=== PATIENT | female | born 1930 | race Caucasian/White ===

== ENCOUNTER 2016-11-14 03:28 | Inpatient (IN) | payer OTHER ==
[~2016-11-14] VITALS: Ht 152.4 cm; Wt 61.2 kg
[2016-11-14 03:40] VITALS: BP 147/78; PULSE 73; RESP 18; TEMP 97.8; O2SAT 83
--- NOTE | 2016-11-14 03:45 | NUR ---
Placed in room 5 . Placed on exceptional needs teacher, blood pressure machine and pulse oximeter. To gown for exam. Side rails up. Report given to Lorena GAUTAM.
--- NOTE | 2016-11-14 03:58 | NUR ---
# 20 gauge angiocath placed to LEFT FOREARM. Use of asceptic technique. Opsite placed over site. Blood return noted. Blood for lab drawn from site. Flushed with 10 cc of normal saline. No evidence of infiltration noted. Patient tolerated well.
--- NOTE | 2016-11-14 04:14 | NUR ---
ANNABELLA Fernandez at bedside examining patient.
[2016-11-14] MEDS ORDERED: ONDANSETRON HCL 4 MG/2 ML VIAL IVP ONE (04:15)
[2016-11-14] MEDS ORDERED: NACL 0.9% 1,000 ML IV ONE (04:15)
[2016-11-14 04:32] LABS: ANION GAP 13 (5-15); CALCIUM 9.9 mg/dL (8.4-11.0); CHLORIDE 102 mmol/L (98-107); CREATININE 0.77 mg/dL (0.55-1.30); GLUCOSE 161 mg/dL (70-99); POTASSIUM 3.9 mmol/L (3.5-5.1); SODIUM SERUM 138 mmol/L (136-145); UREA NITROGEN, BLOOD 32 mg/dL (8-21)
[2016-11-14 04:38] LABS: BASOPHILS # (AUTO) 0.2 K/uL (0.0-0.2); BASOPHILS % (AUTO) 1.5 % (0.0-2.0); EOSINOPHILS % (AUTO) 0.1 % (0.0-4.0); HEMATOCRIT 42.5 % (36-48); HEMOGLOBIN 14.3 g/dL (12.0-16.0); LYMPHOCYTES # (AUTO) 0.6 K/uL (1.0-5.5); LYMPHOCYTES % (AUTO) 5.6 % (20.5-51.5); MEAN CORPUSCULAR HEMOGLOBIN 29 pg (27-31); MEAN CORPUSCULAR HGB CONC 34 % (32-36); MEAN CORPUSCULAR VOLUME 86 fL (79.0-98.0); MONOCYTES # (AUTO) 0.3 K/uL (0.0-1.0); NEUTROPHILS # (AUTO) 9.6 K/uL (1.8-7.7); NEUTROPHILS % (AUTO) 89.8 % (40.0-70.0); PLATELET COUNT (AUTO) 289 K/uL (130-430); RED BLOOD CELL COUNT(AUTO) 4.96 MIL/uL (4.2-6.2); RED CELL DISTRIBUTION WIDTH 13.7 % (9.0-15.0); WHITE BLOOD COUNT (AUTO) 10.7 K/uL (4.8-10.8)
--- NOTE | 2016-11-14 04:39 | NUR ---
Pt. presented to ED with c/o abdominal pain. Per pt. family "she has not had a bowel movement for awhile now". Abdominal sounds are Hypoactive upon auscaltaion. +n/v per family. No vomiting at this time.
[2016-11-14 04:41] LABS: ALANINE AMINOTRANSFERASE 16 U/L (12-78); ALBUMIN 3.7 g/dL (3.4-4.8); ASPARTATE AMINOTRANSFERASE 29 U/L (10-37); LIPASE 298 U/L (73-393); TOTAL BILIRUBIN 0.5 mg/dL (0.0-1.0); TOTAL PROTEIN, SERUM 7.5 g/dL (6.4-8.3)
[2016-11-14 04:49] LABS: PROTHROMBIN TIME 10.9 SECS (9.5-12.5)
[2016-11-14] MEDS ORDERED: KETOROLAC TROMETHAMINE 30 MG VIAL IVP ONE (05:15)
--- NOTE | 2016-11-14 06:58 | NUR ---
Family will bring list of home meds
--- NOTE | 2016-11-14 07:20 | NUR ---
CALLED SURGICAL CONSULT TO DR HOWARD, RE: ENTIRITIS VS SBO. SPOKE TO SAEED
--- NOTE | 2016-11-14 07:33 | NUR ---
Pt. being transfered to MD as per MD order, stable for transfer at this time.
--- NOTE | 2016-11-14 07:37 | NUR ---
Bedside report given to receiving RN
--- NOTE | 2016-11-14 07:38 | NUR ---
ADMISSION NOTE Received patient from ER via gurpolly, received report from RN. Patient admitted with diagnosis of abd pain. Patient oriented to hospital routine, call light, toileting and safety-patient verbalized understanding.
--- NOTE | 2016-11-14 07:50 | NUR ---
patient is awake x 3-4 son at the bedside. stable. no pain nor distress noted.
[2016-11-14 07:55] VITALS: BP 113/68; PULSE 64; RESP 16; TEMP 97.4; O2SAT 98
[2016-11-14] MEDS ORDERED: DOCU-144 PO (08:05)
[2016-11-14] MEDS ORDERED: AMLO5TAB4 PO (08:07)
[2016-11-14] MEDS ORDERED: L.RH1CAP PO (08:07)
[2016-11-14] MEDS ORDERED: BENA20TA2 PO (08:07)
[2016-11-14] MEDS ORDERED: MEMA10SO PO (08:07)
[2016-11-14 08:10] VITALS: BP 113/68; PULSE 64; RESP 16; TEMP 97.4; O2SAT 98
[2016-11-14] MEDS ORDERED: ACETAMINOPHEN 325 MG TABLET PO PRN (10:15)
--- NOTE | 2016-11-14 10:25 | NUR ---
Surgical Consult: for Dr. Roach, regarding SBO, ordered by Dr. Carson, spoke with
[2016-11-14] MEDS ORDERED: GASTROGRAFIN 120 ML ONE (11:31)
[2016-11-14 11:49] VITALS: BP 120/72; PULSE 68; RESP 18; TEMP 97.9; O2SAT 98
--- NOTE | 2016-11-14 12:00 | NUR ---
stable. call lights within reach. bed alarm is on.
[2016-11-14] MEDS: ONDANSETRON HCL 4 MG/2 ML VIAL IVP PRN (12:12)
[2016-11-14] MEDS: MORPHINE 4 MG/ML INJ. SYRINGE IVP PRN (12:13)
--- NOTE | 2016-11-14 14:00 | NUR ---
went to radiology for a procedure small bowel series.
--- NOTE | 2016-11-14 16:30 | NUR ---
still on npo status
[2016-11-14 16:54] VITALS: BP 112/69; PULSE 75; RESP 17; TEMP 97.7; O2SAT 97
--- NOTE | 2016-11-14 17:00 | NUR ---
patient trying to get up of bed. assists the patients.
--- NOTE | 2016-11-14 18:27 | NUR ---
informed Dr Roach of the consults.
--- NOTE | 2016-11-14 19:00 | NUR ---
family at the bedside
--- NOTE | 2016-11-14 19:35 | NUR ---
sbar report given to Emigdio GAUTAM
[2016-11-14 20:00] VITALS: BP 108/53; PULSE 83; RESP 18; TEMP 97.8; O2SAT 97
--- NOTE | 2016-11-14 20:00 | NUR ---
INITIAL NOTES: PT IS AWAKE, NOT IN ANY ACUTE DISTRESS; PT DENIED ANY PAIN , BUT FAMILY STATED SHE MIGHT BE IN SMALL PAIN , NO FACIAL GRIMACE NOTED ; THEN FAMILY STATED GIVE MEDICATION LATER SO SHE CAN GO TO SLEEP ;VITALS ARE STABLE ; NO NAUSEA OR VOMITING NOTED ; IV FLUID IS INFUSING TO THE R FA , NO S/S OF ANY INFILTRATION NOTED . CALL MORALES IN REACH ; FAMILY AT BEDSIDE ;WILL CONTINUE TO MONITOR.BED ALARM IS ON .
[2016-11-14] MEDS: D5NS 1,000 ML IV SCH (20:15)
--- NOTE | 2016-11-14 20:30 | NUR ---
SPONGE BATH: PT IS INCONTINENT WITH SMALL LOOSE BM , SPONGE BATH AND SHUKRI CARE GIVEN ; NOTICED THAT BM IS LOOSE , WILL SEE IF ANOTHER BM , WILL SENT FOR C DIFF . PT IS COMFORTABLE NOW , WILL CONTINUE TO MONITOR.
[2016-11-14] MEDS: MORPHINE 2 MG/ML INJ. SYRINGE IVP PRN (21:40)
--- NOTE | 2016-11-14 21:40 | NUR ---
PAIN: PER FAMILY PT IS IN MODERATE PAIN , MEDICATED WITH MORPHINE PER ORDER
--- NOTE | 2016-11-14 23:20 | NUR ---
RN NOTES: PT IS SLEEPING , NOT IN ANY ACUTE DISTRESS; WILL CONTINUE TO MONITOR.
[2016-11-15 00:18] VITALS: BP 103/52; PULSE 62; RESP 18; TEMP 97.6; O2SAT 97
--- NOTE | 2016-11-15 01:30 | NUR ---
BM: PT IS AWAKE, CONFUSED , NOTICED THAT PT REMOVING ALL HER LINEN AND GOWN , PT IS INCONTINENT WITH URINE AND LOOSE BM ; PT CLEANED , LINEN AND GOWN CHANGED ; PT DENIED ANY PAIN ; WILL CONTINUE TO MONITOR.
[2016-11-15] MEDS: D5NS 1,000 ML IV SCH ×2 (01:45→23:28)
--- NOTE | 2016-11-15 02:00 | NUR ---
RN NOTES: PT IS AWAKE, TRYING TO GET OUT OF BED ; STAYED WITH PT IN THE ROOM , REORIENTED PT ; PT REFUSED PAIN OR DISCOMFORT . WILL CONTINUE TO MONITOR.
[2016-11-15 03:19] VITALS: BP 125/70; PULSE 59; RESP 18; TEMP 96.4; O2SAT 100
--- NOTE | 2016-11-15 03:32 | NUR ---
RN ROUNDS: PT IS SLEEPING , NOT IN ANY ACUTE DISTRESS; WILL CONTINUE TO MONITOR.
--- NOTE | 2016-11-15 04:33 | NUR ---
RN NOTES: PT IS SLEEPING, NOT IN ANY ACUTE DISTRESS; WILL CONTINUE TO MONITOR.
--- NOTE | 2016-11-15 07:01 | NUR ---
CLOSING NOTES: PT IS COMFORTABLE , AWAKE, NOT IN ANY ACUTE DISTRESS; NO BM NOTED AFTER 0130 ; NO SIGNIFICANT CHANGES IN THE CONDITION ; WILL CONTINUE TO MONITOR AND WILL ENDORSE TO NEXT SHIFT NURSE.
--- NOTE | 2016-11-15 07:20 | NUR ---
REPORT GIVEN AT BEDSIDE , NOTICED THAT PT PULLED OUT THE IV ,CLEANED IV SITE , APPLIED PRESSURE .
--- NOTE | 2016-11-15 07:30 | NUR ---
rn notes: patient is awake x 2. but confused. afebrile. vss stable. still with iv access on the rt forearm #22 with D5ns at 100cc/hr infusing on well. lungs bilaterally clear. abdomen soft and non distended. bed in low position. bed alarm is on. patient has non skid shoes. no skin breakdown noted. call lights within reach. safety measures maintained. hourly rounding is necessary. informed patient to call for assistance.
[2016-11-15 08:05] VITALS: BP 140/80; PULSE 80; RESP 18; TEMP 96.8; O2SAT 99
[2016-11-15] MEDS: amLODIPine BESYLATE 5 MG TABLET PO SCH (09:01)
[2016-11-15] MEDS: BENAZEPRIL HCL 20 MG TABLET (LOTENSIN) PO SCH (09:01)
--- NOTE | 2016-11-15 09:06 | NUR ---
cue medication given at this time. applied kerlix to the iv site
--- NOTE | 2016-11-15 09:07 | NUR ---
Nutrition Update Sharif Scale 16 noted. Pt admitted for abd pain, enteritis versus SBO. Diet: NPO BMI: 26.4 kg/m2 RD to follow per nutrition care standards.
[2016-11-15] MEDS ORDERED: GASTROGRAFIN 120 ML ONE (09:46)
[2016-11-15] MEDS ORDERED: BARIUM SULFATE 135 ML SUSP.RECON (E-Z-HD) PO ONE (09:58)
--- NOTE | 2016-11-15 10:00 | NUR ---
greg placed an iv access on the rt forearm. applied kerlix on it #22.
--- NOTE | 2016-11-15 10:15 | NUR ---
pulled out the iv access. patient having diarrhea at this time. bed bath given by ana delgadillo
--- NOTE | 2016-11-15 10:30 | NUR ---
PLACE a new iv access on the right forearm #22.
--- NOTE | 2016-11-15 11:30 | NUR ---
patient pulled out the iv access.
[2016-11-15 12:10] VITALS: BP 105/52; PULSE 92; RESP 17; TEMP 97.6; O2SAT 98
--- NOTE | 2016-11-15 12:30 | NUR ---
applied ice packs on the rt forearm with hematoma due to iv infiltration. and patient pulled out iv many times.
--- NOTE | 2016-11-15 13:30 | NUR ---
hematoma subsided. still applying ice packs on it. patient said no pain at this time.
--- NOTE | 2016-11-15 14:30 | NUR ---
ALEJO RN TRIES TO INSERT IV ACCESS. BUT DIFFICULT VEINS.
--- NOTE | 2016-11-15 14:38 | NUR ---
Social Service Note: DISTRIBUTION DESIGNER met with pt's son, Raulito, and granddaughter, Hayde, at bedside. DISTRIBUTION DESIGNER explained that a referral had been made to [facility] to see if pt qualifies for Medi-Kunal. DISTRIBUTION DESIGNER explained that [facility] would assist in applying if pt qualifies. DISTRIBUTION DESIGNER explained [facility] and how they could assist the pt if pt qualifies for Medi-Kunal. DISTRIBUTION DESIGNER also provided pt's son with brochures for home care agencies and explained that those could be used if pt does not qualify for Medi-Kunal and/or until Medi-Kunal becomes effective and [facility] could be set up. DISTRIBUTION DESIGNER has provided pt's family with contact information for [facility] and [facility] guest services representative. DISTRIBUTION DESIGNER will remain available for support and will follow up as needed.
--- NOTE | 2016-11-15 16:00 | NUR ---
TRIED X 2 BY INOCENTE GAUTAM DIFFICULT VEINS.
[2016-11-15 16:05] VITALS: BP 152/76; PULSE 72; RESP 21; TEMP 97.2; O2SAT 100
--- NOTE | 2016-11-15 17:00 | NUR ---
DONY REPORTS DEVELOPER TRIED X 2. BUT ABLE TO PLACED AN IV ACCESS ON THE LEFT FOREARM #22.
--- NOTE | 2016-11-15 18:00 | NUR ---
ASSISTS ON ADLS.
--- NOTE | 2016-11-15 19:10 | NUR ---
OPENING NOTES RECEIVED REPORT AT BEDSIDE FROM DAY SHIFT NURSE. NO SIGNS OR SYMPTOMS OF DISTRESS NOTED. FALL PRECAUTIONS IN PLACE, CALL LIGHT WITHIN REACH. FAMILY AT BEDSIDE. WILL CONTINUE TO MONITOR.
--- NOTE | 2016-11-15 19:40 | NUR ---
SBAR REPORT GIVEN TO INCOMING NURSE ROBERT RN/ MADI RN AT THE BESIDE. FAMILIES IS AT THE BEDSIDE
[2016-11-15 20:27] VITALS: BP 146/69; PULSE 59; RESP 20; TEMP 97.2; O2SAT 97
--- NOTE | 2016-11-15 21:10 | NUR ---
ROUNDS PATIENT IS RESTING IN SEMI-FOWLERS POSITION. IV FLUIDS RUNNING. FAMILY AT BEDSIDE. NO SIGNS OR SYMPTOMS OF DISTRESS NOTED. FALL PRECAUTIONS IN PLACE, CALL LIGHT WITHIN REACH. WILL CONTINUE TO MONITOR.
[2016-11-15] MEDS: PANTOPRAZOLE SODIUM 40 MG/VIAL (PROTONIX) IVP SCH (21:15)
--- NOTE | 2016-11-15 23:10 | NUR ---
ROUNDS PATIENT IS SITTING UP IN BED, FAMILY AT BEDSIDE. IV FLUIDS CONTINUE TO RUN. NO SIGNS OR SYMPTOMS OF DISTRESS NOTED. FALL PRECAUTIONS IN PLACE, CALL LIGHT WITHIN REACH. WILL CONTINUE TO MONITOR.
[2016-11-15] MEDS: ONDANSETRON HCL 4 MG/2 ML VIAL IVP PRN (23:28)
[2016-11-15] MEDS: MORPHINE 2 MG/ML INJ. SYRINGE IVP PRN (23:29)
[2016-11-16 00:24] VITALS: BP_SYST 128; BP_SYST 157; BP_DIAS 69; BP_DIAS 81; PULSE 80; PULSE 85; RESP 18; TEMP 96.9; TEMP 98.2; O2SAT 96; O2SAT 97
[2016-11-16] MEDS: MORPHINE 4 MG/ML INJ. SYRINGE IVP PRN (01:22)
--- NOTE | 2016-11-16 01:47 | NUR ---
ROUNDS REORIENTED HER THAT SHE WAS IN THE HOSPITAL. PATIENT SHOWED NO SIGNS OR SYMPTOMS OF DISTRESS. BED IN LOWEST POSITION, BED ALARM ON, CALL LIGHT WITHIN REACH.
[2016-11-16] MEDS: D5NS 1,000 ML IV SCH ×4 (02:15→23:48)
--- NOTE | 2016-11-16 03:19 | NUR ---
OPENING NOTES RECEIVED REPORT AT BEDSIDE FROM DAY SHIFT NURSE. NO SIGNS OR SYMPTOMS OF DISTRESS NOTED. FALL PRECAUTIONS IN PLACE, CALL LIGHT WITHIN REACH. FAMILY AT BEDSIDE. WILL CONTINUE TO MONITOR. Addendum: 11/16/16 at 0322 by Dai Sanders RN DATE AND TIME IN ERROR. 11/15/16 AT 1910 SHOULD BE THE CORRECT DATE AND TIME
[2016-11-16 04:17] VITALS: BP 142/71; PULSE 79; RESP 20; TEMP 97.4; O2SAT 96
--- NOTE | 2016-11-16 04:21 | NUR ---
ROUNDS PATIENT SLEEPING COMFORTABLY. VISIBLE RISE AND FALL OF CHEST NOTED. NO SIGNS OR SYMPTOMS OF DISTRESS NOTED. BED IN LOWEST POSITION, BED ALARM ON. CALL LIGHT WITHIN REACH. WILL CONTINUE TO MONITOR.
--- NOTE | 2016-11-16 04:57 | NUR ---
NEW IV SITE FOUND PATIENT WITH IV REMOVED. PATIENT WAS CONFUSED, REORIENTED PATIENT. Restarted on LEFT FOREARM. Successful after 1 attempt; #22 GAUGE. Resumed current IVF of D5NS and regulated @ 100 ML/hour. Will observe for any signs of infiltration.
--- NOTE | 2016-11-16 06:45 | NUR ---
CLOSING NOTES PATIENT IS RESTING, SLEEPING COMFORTABLY. IV RUNNING, VISIBLE RISE AND FALL OF CHEST NOTED. NO SIGNS OR SYMPTOMS OF DISTRESS NOTED. BED IN LOWEST POSITION, BED ALARM ON, CALL LIGHT WITHIN REACH. WILL ENDORSE CARE TO DAY SHIFT NURSE.
--- NOTE | 2016-11-16 07:15 | NUR ---
Handoff rounds and patient sleeping at this time.
--- NOTE | 2016-11-16 08:10 | NUR ---
Patient asleep at this time.
--- NOTE | 2016-11-16 08:41 | NUR ---
Patient attempt to get out of bed. Floor nurse, Jovita and chart writer assist with reposition and reorientation to hospital and introduction of chart writer and team members. Patient says she is not hungry at this time. Says only minimal abdominal pain. Asked if patient wanted to try any other foods. Denies at this time. Given information about having IV fluids and being in hospital for stomach and possible discharge today. Asked if patient needed to walk to restroom. Patient denies need. WINDOW GLASS INSTALLER present and discussion about use of depend diapers.
[2016-11-16] MEDS: PANTOPRAZOLE SODIUM 40 MG/VIAL (PROTONIX) IVP SCH ×2 (09:03→21:43)
[2016-11-16] MEDS: amLODIPine BESYLATE 5 MG TABLET PO SCH (09:03)
[2016-11-16] MEDS: BENAZEPRIL HCL 20 MG TABLET (LOTENSIN) PO SCH (09:04)
[2016-11-16 09:15] VITALS: BP 145/64; PULSE 78; RESP 16; TEMP 96.4; O2SAT 98
--- NOTE | 2016-11-16 09:16 | NUR ---
Patient rounds for meds. Up in chair. [employer] WEBSPHERE COMMERCE DEVELOPER assist with bed bath. Linens arranged.
--- NOTE | 2016-11-16 10:33 | NUR ---
Patient says she forgot why she was here. Removed IV. Replaced IV in left hand 22 Gauge. Patient requests to call son.
--- NOTE | 2016-11-16 10:49 | NUR ---
Son of patient, Raulito, present at bedside.
--- NOTE | 2016-11-16 11:31 | NUR ---
Patient up to restroom for bm and urine. Streak of BM in brief. Education re: cream for irritation provided. Assisted with hand towel with soap and warm water for hands after. Provided juice and small crackers.
[2016-11-16 12:24] VITALS: BP 149/70; PULSE 67; RESP 18; TEMP 97.9; O2SAT 98
--- NOTE | 2016-11-16 12:27 | NUR ---
Round to patient. Says she would like to try another diet. Had 50 % of clear liquid.
--- NOTE | 2016-11-16 13:50 | NUR ---
Patient removed own IV and was replaced at this time. Grandson of the patient visiting.
--- NOTE | 2016-11-16 14:01 | NUR ---
Patient says she is having pain in left middle finger to grandson. Grandson request for ice pack provided to patient. Suggested tylenol prn for pain. Verbalizes understanding.
--- NOTE | 2016-11-16 15:33 | NUR ---
Rounds with provider covering, Doctor Miya. Wants work up with colonoscopy. Requests to have evaluation of gastroenterology. If no colonoscopy by GI MD would request barium enema. Believes it may be ca or stricture.
[2016-11-16 16:03] VITALS: BP 142/72; PULSE 72; RESP 18; TEMP 97.9; O2SAT 98
--- NOTE | 2016-11-16 16:29 | NUR ---
CONSULT GI COLONOSCOPY DR DEL REAL [phone] S/W PRIYA PIERCE @ [phone]
--- NOTE | 2016-11-16 17:41 | NUR ---
Son , Gabriel , present and visiting with mother. Update re: GI consult and colonoscopy a possible next step provided.
[2016-11-16 20:15] VITALS: BP 144/76; PULSE 63; RESP 18; TEMP 97.9; O2SAT 99
--- NOTE | 2016-11-16 21:46 | NUR ---
Medication Due medication administered as ordered.
--- NOTE | 2016-11-16 23:16 | NUR ---
Rounds Sleeping quietly, no apparent distress. No c/o pain or discomfort. Bed alarm on, call light within reach.
[2016-11-17] VITALS (7 sets, daily range): BP systolic 117–194; BP diastolic 58–99; PULSE 60–86; RESP 16–18; TEMP 96.6–98.4; O2SAT 97–100
--- NOTE | 2016-11-17 03:10 | NUR ---
Rounds Sleeping, no apparent distress. Easily aroused. No c/o pain or discomfort. Call light within reach. Bed alarm on.
--- NOTE | 2016-11-17 07:00 | NUR ---
Closing note Sitting up in bed, alert & oriented to name. Stated, "I am hungry." Reoriented to place & time. Informed breakfast will becoming & to stay in bed and not get up. Verbalized understanding. No c/o pain or discomfort. All needs attended to. Call light within reach, bed alarm on. Endorsed care to DAIN Hernandez via SBAR method.
[2016-11-17 07:07] LABS: BASOPHILS % (AUTO) 0.4 % (0.0-2.0); EOSINOPHILS # (AUTO) 0.1 K/uL (0.0-0.4); EOSINOPHILS % (AUTO) 1.1 % (0.0-4.0); HEMATOCRIT 34.6 % (36-48); HEMOGLOBIN 11.9 g/dL (12.0-16.0); LYMPHOCYTES # (AUTO) 0.6 K/uL (1.0-5.5); LYMPHOCYTES % (AUTO) 10.7 % (20.5-51.5); MEAN CORPUSCULAR HEMOGLOBIN 29 pg (27-31); MEAN CORPUSCULAR HGB CONC 35 % (32-36); MEAN CORPUSCULAR VOLUME 85 fL (79.0-98.0); MONOCYTES # (AUTO) 0.4 K/uL (0.0-1.0); MONOCYTES % (AUTO) 7.5 % (1.7-9.3); NEUTROPHILS # (AUTO) 4.8 K/uL (1.8-7.7); NEUTROPHILS % (AUTO) 80.3 % (40.0-70.0); PLATELET COUNT (AUTO) 232 K/uL (130-430); RED BLOOD CELL COUNT(AUTO) 4.08 MIL/uL (4.2-6.2); WHITE BLOOD COUNT (AUTO) 5.9 K/uL (4.8-10.8)
[2016-11-17 07:34] LABS: ALANINE AMINOTRANSFERASE 17 U/L (12-78); ALBUMIN 2.9 g/dL (3.4-4.8); ANION GAP 5 (5-15); ASPARTATE AMINOTRANSFERASE 24 U/L (10-37); CALCIUM 8.1 mg/dL (8.4-11.0); CHLORIDE 110 mmol/L (98-107); CREATININE 0.56 mg/dL (0.55-1.30); GLUCOSE 121 mg/dL (70-99); SODIUM SERUM 144 mmol/L (136-145); TOTAL BILIRUBIN 0.4 mg/dL (0.0-1.0); TOTAL PROTEIN, SERUM 6.3 g/dL (6.4-8.3); UREA NITROGEN, BLOOD 6 mg/dL (8-21)
--- NOTE | 2016-11-17 08:00 | NUR ---
NOTE PT SITTING UP IN BED. NO SOB./RESP DISTRESS OR PAIN/DISCOMFORT NOTED AT THIS TIME. IV IN RIGHT HAND INTACT AND PATENT AT THIS TIME. IVF'S INFUSING AT THIS TIME. CALL LIGHT WITHIN REACH.
[2016-11-17 08:04] LABS: POTASSIUM 2.8 mmol/L (3.5-5.1)
[2016-11-17] MEDS: D5NS 1,000 ML IV SCH (08:15)
[2016-11-17] MEDS ORDERED: POTASSIUM CHLORIDE 20 MEQ TAB.PRT.SR PO ONE ×2 (08:30→11:15)
[2016-11-17] MEDS: PANTOPRAZOLE SODIUM 40 MG/VIAL (PROTONIX) IVP SCH ×2 (08:54→21:45)
[2016-11-17] MEDS: BENAZEPRIL HCL 20 MG TABLET (LOTENSIN) PO SCH (09:32)
[2016-11-17] MEDS: amLODIPine BESYLATE 5 MG TABLET PO SCH (09:34)
[2016-11-17] MEDS: LR 1,000 ML IV SCH ×2 (11:15→22:19)
[2016-11-17] MEDS ORDERED: QUEtiapine FUMARATE 25 MG TABLET PO ONE (11:15)
[2016-11-17] MEDS ORDERED: cloNIDine HCL 0.1 MG TABLET PO PRN (11:15)
--- NOTE | 2016-11-17 11:30 | NUR ---
NOTE PT'S SON JULIET SPOKE TO DR MURRELL AND HAD QUESTIONS/CONCERNS ANSWERED AT THIS TIME. PT'S SON TEREZA SIGNED CONSENT FOR EGD/COLONOSCOPY. PT HAD PULLED HER RIGHT HAND IV AT THIS TIME WELL. PT SITTING IN BS CHAIR AT THIS TIME. PT IS CALM AND QUIET AT THIS TIME. CALL LIGHT WITHIN REACH.
--- NOTE | 2016-11-17 15:00 | NUR ---
NOTE PT SITTING IN HALLWAY IN BS CHAIR. PT'S GRANDDAUGHTER AMISHA SPOKE TO DR DEL REAL ABOUT COLONOSCOPY AND EGD, HAD HER QUESTIONS/CONCERNS ANSWERED AT THIS TIME. PT IS CALM AND QUIET. PT HAD NEW IV INSERTED IN RIGHT UPPER ARM AND ARNOLDO WRAPPED AT THIS TIME. NO NEEDS NOTED AT THIS TIME. PT CHECKED ON BY RN'S AND STUDENT SERVICES REP'S FREQUENTLY. NO NEEDS NOTED AT THIS TIME. PT STABLE.
[2016-11-17] MEDS ORDERED: BISACODYL 5 MG TABLET.DR (DULCOLAX) PO ONE (17:00)
--- NOTE | 2016-11-17 17:50 | NUR ---
note pt's son Gabriel at side. pt sitting in BS chair in hallway. pt at this time is eating her clear liquids dinner tray at this time. tolerating liquid dinner well. no nausea/vomiting/abdominal pain/cramping noted at this time. no needs noted at this time. pt sitting in front of nurses' station. no sob/resp distress or pain/discomfort noted at this time.
[2016-11-17] MEDS ORDERED: GOLYTELY / COLYTE SOLUTION 4 LITERS PO ONE (18:00)
--- NOTE | 2016-11-17 18:05 | NUR ---
NOTE PT SITTING IN HALLWAY WITH HER SON CASSI EATING HER DINNER, NEXT TO NURSES' STATION. NO SOB/RESP DISTRESS OR ABDOMINAL PAIN NOTED AT THIS TIME. UPPER RIGHT ARM IV INTACT AND PATENT AT THIS TIME. NO NEEDS NOTED. PT WAS CHECKED ON Q1' AND PRN FOR NEEDS AND CARE. PT WAS MAINTAINED WITH SAFETY PRECAUTIONS ALL SHIFT.
--- NOTE | 2016-11-17 20:15 | NUR ---
Notes Received patient sitting on chair drinking Golytely per family that helping patient drink golytely, patient already drunk 2 cups. Encouraged patient to drink golytely. IV site checked intact and patent, saline lock at this time will connect to IV fluid, Sitter at the bedside.
--- NOTE | 2016-11-17 20:24 | NUR ---
Notes Assisted patient to use bathroom, BRP with assist, patient had small soft bowel movement. patient wearing own diaper. applied barrier cream on patient bottom.
[2016-11-17] MEDS: POTASSIUM CHLORIDE 20 MEQ TAB.PRT.SR PO SCH (21:15)
[2016-11-17] MEDS: QUEtiapine FUMARATE 25 MG TABLET PO SCH (21:15)
--- NOTE | 2016-11-17 21:30 | NUR ---
Notes Attempted to place NGT to patient per MD ordered if patient did not take Golytely, patient refused NGT, family at the bedside states that they will help patient to take Golytely. Patient drunk x6 cup of Golytely already per son at the bedside. Daughter in law will stay until 23:30 to help patient take the Golytely. will monitor.
--- NOTE | 2016-11-17 23:50 | NUR ---
Notes Assisted patient to go to the bathroom and back to bed x3, watery loose stool with sediment noted. Patient does not want to take Golytely, patient already drunk 2000ml. Patient want's to go to sleep. will try later.
[2016-11-18] VITALS (7 sets, daily range): BP systolic 123–167; BP diastolic 63–104; PULSE 62–78; RESP 18–19; TEMP 97–99.3; O2SAT 82–100
--- NOTE | 2016-11-18 00:29 | NUR ---
Notes Assisted patient to use bathroom, BRP with assist, patient had watery loose stool. patient wearing own diaper. applied barrier cream on patient bottom.
--- NOTE | 2016-11-18 01:10 | NUR ---
Notes Assisted patient to use bathroom and back to bed, BRP with assist, patient had watery loose stool. patient wearing own diaper.
--- NOTE | 2016-11-18 03:42 | NUR ---
Notes Patient asleep, no s/s of any pain, no acute distress noted. sitter at the bedside.
--- NOTE | 2016-11-18 04:39 | NUR ---
Notes Patient asleep, no s/s of any pain, no acute distress noted. sitter at the bedside.
--- NOTE | 2016-11-18 05:30 | NUR ---
Tap water enema X1 Tap water enema given, patient tolerated procedure well, clear watery stool noted.
--- NOTE | 2016-11-18 06:13 | NUR ---
Direct Observer at bedside Discontinued: Direct observer ordered so patient will not pull out NGT. No NGT at this time. As endorsed by AM shift Charge nurse 11/17/16, when NGT out, discontinue direct observer.
--- NOTE | 2016-11-18 06:33 | NUR ---
Closing notes No other changes noted on patient current condition, resting quietly at this time.
[2016-11-18 07:15] LABS: BASOPHILS % (AUTO) 0.3 % (0.0-2.0); EOSINOPHILS # (AUTO) 0.1 K/uL (0.0-0.4); EOSINOPHILS % (AUTO) 1.7 % (0.0-4.0); HEMATOCRIT 34.9 % (36-48); HEMOGLOBIN 11.6 g/dL (12.0-16.0); LYMPHOCYTES # (AUTO) 0.5 K/uL (1.0-5.5); LYMPHOCYTES % (AUTO) 9.9 % (20.5-51.5); MEAN CORPUSCULAR HEMOGLOBIN 29 pg (27-31); MEAN CORPUSCULAR HGB CONC 33 % (32-36); MEAN CORPUSCULAR VOLUME 87 fL (79.0-98.0); MONOCYTES # (AUTO) 0.5 K/uL (0.0-1.0); MONOCYTES % (AUTO) 10.6 % (1.7-9.3); NEUTROPHILS # (AUTO) 3.9 K/uL (1.8-7.7); NEUTROPHILS % (AUTO) 77.5 % (40.0-70.0); PLATELET COUNT (AUTO) 241 K/uL (130-430); RED CELL DISTRIBUTION WIDTH 13.5 % (9.0-15.0)
--- NOTE | 2016-11-18 07:20 | NUR ---
am rounds: patient lying on the bed,awake.ivf on going at right upper arm covered with theo bandage.no distress. bed alarm on.continue to monitor.
[2016-11-18 07:24] LABS: ANION GAP 5 (5-15); CALCIUM 8.4 mg/dL (8.4-11.0); CHLORIDE 107 mmol/L (98-107); CREATININE 0.59 mg/dL (0.55-1.30); GLUCOSE 107 mg/dL (70-99); PHOSPHORUS 1.7 mg/dL (2.7-4.5); POTASSIUM 3.5 mmol/L (3.5-5.1); SODIUM SERUM 138 mmol/L (136-145); UREA NITROGEN, BLOOD 4 mg/dL (8-21)
[2016-11-18 07:49] LABS: INR 1.1 (0.8-1.2); PROTHROMBIN TIME 11.6 SECS (9.5-12.5)
--- NOTE | 2016-11-18 07:51 | NUR ---
rn notes: bed alarm on and came in to check the patient ,iv removed by the patient.placed a gauze on the site,no bleeding noted. bed alarm on.
[2016-11-18] MEDS: BENAZEPRIL HCL 20 MG TABLET (LOTENSIN) PO SCH (09:00)
[2016-11-18] MEDS: PANTOPRAZOLE SODIUM 40 MG/VIAL (PROTONIX) IVP SCH (09:04)
--- NOTE | 2016-11-18 09:07 | NUR ---
iv notes: iv re sited at left arm using g#20 by jennifer.
--- NOTE | 2016-11-18 11:05 | NUR ---
ROUNDS: RESTING, SON AT BEDSIDE.
[2016-11-18] MEDS: MORPHINE 2 MG/ML INJ. SYRINGE IVP PRN (11:36)
[2016-11-18] MEDS ORDERED: MIDAZOLAM HCL 5 MG/5 ML VIAL ONE (12:50)
[2016-11-18] MEDS ORDERED: MEPERIDINE HCL/PF 50 MG/ML AMP ONE (12:51)
--- NOTE | 2016-11-18 13:09 | NUR ---
ROUNDS: SLEEPING DURING ROUNDS. STABLE. NPO MAINTAINED.
--- NOTE | 2016-11-18 13:35 | NUR ---
GI LAB: PATIENT TO GI LAB PER NELLY. NPO MAINTAINED. FOR EGD AND COLONOSCOPY.CONSENT ATTACHED TO CHART.
[2016-11-18] MEDS: MIDAZOLAM HCL 5 MG/5 ML VIAL ONE ×3 (14:00→14:06)
[2016-11-18] MEDS: MEPERIDINE HCL/PF 50 MG/ML AMP ONE ×2 (14:02→14:04)
--- NOTE | 2016-11-18 15:25 | NUR ---
ROUNDS: PT BACK FROM GI LAB.STABLE. EGD AND COLONOSCOPY DONE.
[2016-11-18] MEDS: POTASSIUM CHLORIDE 20 MEQ TAB.PRT.SR PO SCH (15:55)
[2016-11-18] MEDS: amLODIPine BESYLATE 5 MG TABLET PO SCH (15:56)
[2016-11-18] MEDS: QUEtiapine FUMARATE 25 MG TABLET PO SCH (16:00)
--- NOTE | 2016-11-18 16:27 | NUR ---
MD ROUNDS: PATIENT SEEN BY DR FARRIS WITH ORDERS DC HOME IF PT TOLERATES SOFT DIET AT DINNER.
--- NOTE | 2016-11-18 18:33 | NUR ---
MEAL: PATIENT SITTING ON THE CHAIR HAVING DINNER.WAITING TO SEE IF PT TOLERATES THE MEAL.
--- NOTE | 2016-11-18 19:00 | NUR ---
CLOSING NOTES: REPORT GIVEN TO [place] NIGHT NURSE. PT POSSIBLE HOME TONIGHT IF TOLERATED THE DIET ORDERED.
--- NOTE | 2016-11-18 20:55 | NUR ---
D/C Patient Patient given medication reconciliation form and D/C instructions. Exit Care provided. Patient's son Gabriel verbalized understanding. MD discussed with patient's son Gabriel the results and treatment provided. Ambulatory with steady gait for discharge to home. Patient in stable condition, ID band removed. IV catheter removed, intact and dressing applied, no active bleeding. no RX. Patient educated on pain management. All belongings sent with patient.
--- NOTE | 2016-11-21 11:12 | NUR ---
Discharge Follow Up Phone Call Assistant Professor Of Geography phoned patient's son, Raulito, , on 11/20/16 and left a voicemail message on 11/20/16. [facility] phoned Raulito today. Raulito stated that patient was continuing to have pain in her side. He questioned why patient did not receive pain medication. SOLID FIBER PASTER OPERATOR was unable to answer that. Patient's PCP is out of office today. Raulito will try to get patient an appointment tomorrow. Patient's follow up with the GI is not for a month. Raulito is trying to get an earlier appointment. [facility] provided Dr Ruiz's contact information. Raulito will try calling. [facility] also suggested he try working with the PCP tomorrow to get an earlier GI appointment. Raulito requested Brendan with [facility] phone number to discuss Medi-Kunal further. [facility] provided it, . Raulito would like to hot die picker patient's Medical Records today, [facility] transferred him to Medical Records. Assistant Professor Of Geography will remain available upon request.
== END 2016-11-18 20:48 | disposition home or self-care (01) | DRG 390 ==
LOC: SED 03:28 → SMU 06:47
PROVIDERS: ADMIT Internal Medicine Hospice and Palliative Medicine; ATTEND Internal Medicine Hospice and Palliative Medicine
PROC: 0DB68ZX Excision of Stomach, Via Natural or Artificial Opening Endoscopic, Diagnostic (ICD-10-PCS; principal; 2016-11-18 13:30)
PROC: 0DJD8ZZ Inspection of Lower Intestinal Tract, Via Natural or Artificial Opening Endoscopic (ICD-10-PCS; 2016-11-18 13:30)
DX: K56.60 Unspecified intestinal obstruction (principal); K29.70 Gastritis, unspecified, without bleeding; I10 Essential (primary) hypertension; K21.9 Gastro-esophageal reflux disease without esophagitis; K57.90 Diverticulosis of intestine, part unspecified, without perforation or abscess without bleeding; K64.9 Unspecified hemorrhoids; K31.89 Other diseases of stomach and duodenum; E03.9 Hypothyroidism, unspecified; F03.90 Unspecified dementia, unspecified severity, without behavioral disturbance, psychotic disturbance, mood disturbance, and anxiety
CPT/HCPCS: 36415; 43239; 45378; 74240-TC; 74250-TC; 80048; 80053; 83690-TC; 83735-TC; 84100-TC; 84484; 85025; 85610-TC; 85730-TC; 87081; 87230-TC; 93005; 96361; 96374; 96375; 99285; C9113; J1885; J2175; J2250; J2270; J2405; J7030; J7042; J7120; Q9963

== ENCOUNTER 2019-05-14 14:57 | Inpatient (IN) | payer OTHER ==
[~2019-05-14] VITALS: Ht 154.9 cm; Wt 57.2 kg
[~2019-05-14 14:57] MED LIST: AMLO5TAB4 PO; BENA20TA9 PO; DOCU-144 PO; L.RH1CAP PO; MEMA10SO PO
[2019-05-14 15:00] VITALS: BP_SYST 157
--- NOTE | 2019-05-14 15:00 | NUR ---
BROUGHT IN BY [facility] AND PLACED IN BED #1, TRIAGED, SON AT BEDSIDE FOR HELP WITH HISTORY. REPORT GIVEN TO EMIR
--- NOTE | 2019-05-14 15:10 | NUR ---
Patient presented to ER with c/o left hip pain. Patient brought in by BLS from home. Patient confused, A&Ox3, skin pink, respirations equal. Son of patient states she was found on the floor at home on her back, patient fell while ambulating. Son of patient was at home at time of fall, in another room. Son is primary grounds caretaker, patient has dementia.
[2019-05-14] MEDS ORDERED: ACETAMINOPHEN 500 MG TABLET PO ONE (15:15)
--- NOTE | 2019-05-14 15:27 | NUR ---
Patient to ER bed 1 from radiology
[2019-05-14] MEDS ORDERED: MORPHINE 2 MG/ML INJ. SYRINGE IVP ONE (15:30)
--- NOTE | 2019-05-14 17:30 | NUR ---
Medication reconciliation completed with information provided by Son of patient. Any prior medication reconciliation on file was reviewed and corrected.
[2019-05-14] MEDS ORDERED: FURO-150 PO (17:31)
[2019-05-14] MEDS ORDERED: POTA10TA15 PO (17:33)
[2019-05-14 17:43] LABS: BASOPHILS % (AUTO) 0.4 % (0.0-2.0); EOSINOPHILS % (AUTO) 0.5 % (0.0-4.0); HEMOGLOBIN 14.1 g/dL (12.0-16.0); LYMPHOCYTES # (AUTO) 0.5 K/uL (1.0-5.5); LYMPHOCYTES % (AUTO) 6.9 % (20.5-51.5); MEAN CORPUSCULAR HEMOGLOBIN 32 pg (27-31); MEAN CORPUSCULAR HGB CONC 34 % (32-36); MEAN CORPUSCULAR VOLUME 92 fL (79.0-98.0); MONOCYTES # (AUTO) 0.3 K/uL (0.0-1.0); MONOCYTES % (AUTO) 4.7 % (1.7-9.3); NEUTROPHILS # (AUTO) 6.4 K/uL (1.8-7.7); NEUTROPHILS % (AUTO) 87.5 % (40.0-70.0); PLATELET COUNT (AUTO) 236 K/uL (130-430); RED BLOOD CELL COUNT(AUTO) 4.45 MIL/uL (4.2-6.2); RED CELL DISTRIBUTION WIDTH 13.4 % (9.0-15.0); WHITE BLOOD COUNT (AUTO) 7.3 K/uL (4.8-10.8)
[2019-05-14 17:47] LABS: ANION GAP 7 (5-15); CALCIUM 9.1 mg/dL (8.4-11.0); CHLORIDE 98 mmol/L (98-107); CREATININE 0.58 mg/dL (0.55-1.30); GLUCOSE 104 mg/dL (70-99); SODIUM SERUM 132 mmol/L (136-145); UREA NITROGEN, BLOOD 16 mg/dL (8-21)
[2019-05-14 17:51] LABS: INR 1.1 (0.8-1.2); PROTHROMBIN TIME 10.9 SECS (9.5-12.5)
[2019-05-14 17:53] LABS: ALANINE AMINOTRANSFERASE 16 U/L (12-78); ALBUMIN 3.4 g/dL (3.4-4.8); ASPARTATE AMINOTRANSFERASE 24 U/L (10-37); TOTAL BILIRUBIN 0.4 mg/dL (0.0-1.0)
[2019-05-14] MEDS ORDERED: MORPHINE 4 MG/ML INJ. SYRINGE IVP ONE (18:00)
--- NOTE | 2019-05-14 18:15 | NUR ---
# 16 FR Romo catheter with use of sterile technique. Immediate return of 30 cc yellow urine noted. Bedside drainage bag placed below level of bladder. Urine sample collected and sent to lab. Pt tolerated procedure . Patient arrived with romo in place, changed due to standard of practice prior to admission. Patient unable to toilet self.
[2019-05-14 18:39] LABS: BILIRUBIN,URINE NEGATIVE (NEGATIVE); CLARITY/URINE CLEAR (CLEAR); COLOR,URINE YELLOW (YELLOW); GLUCOSE,URINE NEGATIVE (NEGATIVE); KETONES,URINE NEGATIVE (NEGATIVE); LEUKOCYTE ESTERASE ,URINE NEGATIVE (NEGATIVE); NITRITE, URINE NEGATIVE (NEGATIVE); PROTEIN URINE NEGATIVE (NEGATIVE); UROBILINOGEN,URINE 0.2 (0.2-1.0)
[2019-05-14 18:41] LABS: BLOOD, URINE TRACE (NEGATIVE)
--- NOTE | 2019-05-14 18:41 | NUR ---
Note undone in ED - 05/14/19 at 1926 by DIPESHEDTUlysses Transfer to Tele 120A via ACLS protocol. Licensed nurse present. IV present no signs or symptoms of infiltration.Patient will be admitted to care of Dr. Holliday. Admitted to Tele unit. Will go to room 120A. Belongings list completed. Summary report printed. Report will be given at bedside.
--- NOTE | 2019-05-14 18:41 | NUR ---
Admitted to Tele unit. Will go to room 120A. Belongings list completed. Summary report printed. Report will be given at bedside. Patient will be admitted to care of Dr. Holliday. Admitted to Tele unit. Will go to room 120A. Belongings list completed. Summary report printed. Report given at bedside es Schultz RN & Tracey RN. Transfer to Tele 120A via ACLS protocol. Licensed nurse present. IV present no signs or symptoms of infiltration.Patient will be admitted to care of Dr. Holliday.
[2019-05-14] MEDS ORDERED: NACL 0.9% 1,000 ML IV SCH (18:45)
[2019-05-14 18:50] LABS: BACTERIA,URINE RARE /HPF (None Seen); MUCUS,URINE None Seen /LPF (None Seen); RBC,URINE 0-3 /HPF (0-3); WBC,URINE 0-3 /HPF (0-3)
[2019-05-14 20:05] VITALS: BP_SYST 137
--- NOTE | 2019-05-14 20:36 | NUR ---
Admission Note Received patient from ER with diagnosis of LEFT HIP FRACTURE. Initial Plan of Care discussed-patient & FAMILY MEMBER verbalized understanding. Family at bedside. Oriented to room, call light, pain management and safety.
[2019-05-14] MEDS ORDERED: ONDANSETRON HCL 4 MG/2 ML VIAL IVP PRN (23:00)
[2019-05-14] MEDS ORDERED: ACETAMINOPHEN 325 MG TABLET PO PRN (23:00)
--- NOTE | 2019-05-14 23:18 | NUR ---
CONSULTATION PAGED/CALLED Reason for Consultation: FX HIP Person Who was Notified: SIRISHA Consulting Physician: DR. PAGAN Hand Polisher Specialty: Ordering Physician: DR. MURRELL
[2019-05-14] MEDS ORDERED: cloNIDine HCL 0.1 MG TABLET PO PRN (23:30)
[2019-05-14] MEDS ORDERED: QUEtiapine FUMARATE 25 MG TABLET PO SCH (23:31)
[2019-05-15] MEDS: MORPHINE 2 MG/ML INJ. SYRINGE IVP PRN ×6 (00:04→20:34)
--- NOTE | 2019-05-15 00:33 | NUR ---
CONSULTATION PAGED/CALLED Reason for Consultation: CARDIAC CLEARENCE Person Who was Notified: YUKO Consulting Physician: DR. DIXON. (DR. RIVERS IS BARREL BUNG REMOVER AND DUMPER) Teacher Of Gifted Students Specialty: Ordering Physician: DR. MURRELL
--- NOTE | 2019-05-15 01:09 | NUR ---
MORPHINE SULFATE 2 MG IVP administer for left HIP pain and helpful comfort measures implemented & tolerated .
--- NOTE | 2019-05-15 01:12 | NUR ---
DR HANDY OSORIO @ THE BEDSIDE WITH PATIENT NEW ORDERS OBTAINED FAMILY IS HERE & AWARE .
--- NOTE | 2019-05-15 01:13 | NUR ---
SEROQUEL 25 MG PO administer as ordered patient agitated at times FALL RISK .
[2019-05-15 01:25] VITALS: BP_SYST 131
[2019-05-15] MEDS: D5LR 1,000 ML IV SCH ×2 (02:05→14:31)
--- NOTE | 2019-05-15 04:01 | NUR ---
BUCKS TRACTION APPLIED 5 LBS PATIENT TOLERATING .
--- NOTE | 2019-05-15 04:02 | NUR ---
Patient agitated pulling on Tubes Phoned family Osmany to stay with patient & helpful .
--- NOTE | 2019-05-15 06:41 | NUR ---
MORPHINE SULFATE 2 MG IVP GIVEN FOR ACUTE LEFT HIP PAIN 02/24 and helpful .
--- NOTE | 2019-05-15 07:45 | NUR ---
OPENING NOTE PATIENT AWAKE IN BED AND RESTLESS. A/OX1. ROOM AIR. NO ACUTE DISTRESS. NO SOB. RESPIRATION EVEN AND UNLABORED. SKIN WARM AND DRY TO TOUCH. IV INTACT AND PATENT; SUGEY IVF. EDGAR CATH DRAINING YELLOW CLEAR URINE. PATIENT WITH TRAPEZE BAR AND BUCKS TRACTION INTACT AT 5 BLS; SUGEY WELL. BED IN LOW AND LOCKED POSITION. SIDERAIL UPX3. BED ALARM ON. SON AT BEDSIDE. CALL LIGHT IN REACH. CONT TO MONITOR.
[2019-05-15 08:24] VITALS: BP_SYST 127
[2019-05-15 08:52] LABS: BASOPHILS % (AUTO) 0.2 % (0.0-2.0); EOSINOPHILS % (AUTO) 0.1 % (0.0-4.0); HEMATOCRIT 40.6 % (36-48); HEMOGLOBIN 13.7 g/dL (12.0-16.0); LYMPHOCYTES # (AUTO) 0.4 K/uL (1.0-5.5); LYMPHOCYTES % (AUTO) 4.7 % (20.5-51.5); MEAN CORPUSCULAR HEMOGLOBIN 31 pg (27-31); MEAN CORPUSCULAR HGB CONC 34 % (32-36); MEAN CORPUSCULAR VOLUME 92 fL (79.0-98.0); MONOCYTES # (AUTO) 0.4 K/uL (0.0-1.0); MONOCYTES % (AUTO) 4.9 % (1.7-9.3); NEUTROPHILS # (AUTO) 7.1 K/uL (1.8-7.7); NEUTROPHILS % (AUTO) 90.1 % (40.0-70.0); PLATELET COUNT (AUTO) 240 K/uL (130-430); RED BLOOD CELL COUNT(AUTO) 4.43 MIL/uL (4.2-6.2); RED CELL DISTRIBUTION WIDTH 13.4 % (9.0-15.0); WHITE BLOOD COUNT (AUTO) 7.8 K/uL (4.8-10.8)
[2019-05-15] MEDS: DOCUSATE SODIUM 100 MG CAPSULE PO SCH ×2 (08:55→20:34)
[2019-05-15] MEDS: MULTIVITS,CA,MINERALS/IRON/FA 1 TABLET PO SCH (08:55)
[2019-05-15] MEDS: LACTOBACILLUS RHAMNOSUS GG 1 CAP CAPSULE PO SCH ×2 (08:55→20:34)
[2019-05-15] MEDS: CHOLECALCIFEROL (VITAMIN D3) 2,000 UNIT TABLET PO SCH (08:56)
--- NOTE | 2019-05-15 08:57 | NUR ---
MEDS ALL DUE MEDS ADMINISTERED AT THIS TIME. TEACHING DONE ON MEDICATION AND ASE. SON AT BEDSIDE. ALL NEEDS MET. CONT TO MONITOR
[2019-05-15] MEDS ORDERED: amLODIPine BESYLATE 5 MG TABLET PO SCH (09:00)
[2019-05-15] MEDS ORDERED: MEMANTINE HCL 5 MG TABLET PO SCH (09:00)
[2019-05-15] MEDS ORDERED: LISINOPRIL 20 MG TABLET PO SCH (09:00)
[2019-05-15 09:05] LABS: ANION GAP 8 (5-15); CALCIUM 9.1 mg/dL (8.4-11.0); CHLORIDE 97 mmol/L (98-107); CREATININE 0.49 mg/dL (0.55-1.30); GLUCOSE 146 mg/dL (70-99); POTASSIUM 3.3 mmol/L (3.5-5.1); SODIUM SERUM 132 mmol/L (136-145); THYROID STIMULATING HORMONE 10.06 uIu/mL (0.36-3.74); UREA NITROGEN, BLOOD 11 mg/dL (8-21)
--- NOTE | 2019-05-15 09:47 | NUR ---
SEEN AND EXAMINED BY AT BEDSIDE
--- NOTE | 2019-05-15 10:41 | NUR ---
Nutrition Update Sharif Scale 16 noted. Pt admitted for L hip fracture. Diet: mechanical soft BMI: 25.5 kg/m2 RD to follow per nutrition care standards.
[2019-05-15 11:22] VITALS: BP_SYST 104
--- NOTE | 2019-05-15 12:30 | NUR ---
NOTE PATIENT C/O SEVERE PAIN TO LEFT HIP AND BACK. VS STABLE. REFUSED ICE PACK. MORPHINE ADMINISTERED ORDERED, SUGEY WELL. ALL NEEDS MET. CONT TO MONITOR. CALL LIGHT IN REACH. SON JULIET AT BEDSIDE
--- NOTE | 2019-05-15 12:40 | NUR ---
SEEN AND EXAMINED BY AT BEDSIDE
[2019-05-15] MEDS ORDERED: POTASSIUM CHLORIDE 40 MEQ, LIDOCAINE JECT 2% PF 100 MG 50 MG in NS 250 ML IV ONE (12:45)
[2019-05-15] MEDS ORDERED: LEVOTHYROXINE SODIUM 0.025 MG TABLET PO ONE (13:00)
[2019-05-15] MEDS: LEVOTHYROXINE SODIUM 0.025 MG TABLET PO SCH (14:29)
--- NOTE | 2019-05-15 14:45 | NUR ---
NOTE PATIENT AWAKE TALKING TO SON AND DAUGHTER IN LAW. VS STABLE. PATIENT C/O SEVERE PAIN TO LEFT LEG AND BACK. MORPHINE ADMINISTERED ORDERED. ALL NEEDS MET. CONT TO MONITOR
--- NOTE | 2019-05-15 15:00 | NUR ---
DR.HANES HENSLEY STATED HE WILL BE IN THIS AFTERNOON TO SEE PATIENT.
[2019-05-15 15:27] VITALS: BP_SYST 114
--- NOTE | 2019-05-15 16:25 | NUR ---
NOTE PATIENT RESTING IN BED. NO ACUTE DISTRESS. NO SOB. RESPIRATION EVEN AND UNLABORED. SON AT BEDSIDE. CONT TO MONITOR. CALL LIGHT IN REACH
[2019-05-15] MEDS: QUEtiapine FUMARATE 25 MG TABLET PO SCH (18:01)
--- NOTE | 2019-05-15 18:30 | NUR ---
SEEN AND EXAMINED BY AT BEDSIDE SPOKE TO PATIENTS SON DAO AND HIS AND ANOTHER BROTHER AND EXPLAINED PATIENTS CONDITION AND SURGERY TO BE PERFORMED TOMORROW. CONSENT SIGNED BY DAO AND . SURGERY IS SCHEDULED FOR 1029 TOMORROW
--- NOTE | 2019-05-15 18:50 | NUR ---
CLOSING NOTE PATIENT IS AWAKE. DAUGHTER IN LAW IS FEEDING PATIENT DINNER, SUGEY. FAMILY AWARE PATIENT WILL BE NPO AFTER MIDNIGHT FOR SURGERY TOMORROW. PATIENT IN NO ACUTE DISTRESS. NO SOB. RESPIRATION EVEN AND UNLABORED. SKIN WARM AND DRY TO TOUCH. IV INTACT AND PATENT. EDGAR CATH INTACT AND PATENT. CONT ON BUCKS TRACTION; 5LB AND SUGEY WELL. BED IN LOW AND LOCKED POSITION. SIDERAIL UPX3. BED ALARM ON. CALL LIGHT IN REACH. CONT TO MONITOR. WILL ENDORSE TO ONCOMING SHIFT
--- NOTE | 2019-05-15 19:05 | NUR ---
OPENING NOTES Bedside report received from dayshift nurse. Patient received lying in bed, sleeping. No s/s of acute distress noted. Breathing even and unlabored. IVF infusing well, IV site patent, no signs of infiltration or infection noted. HOB slightly raised. Smith attached, secured, and draining by gravity. Ross traction in place, 5 lbs. Family at bedside. Bed alarm on. Call light with patient. Will continue to monitor.
[2019-05-15 20:00] VITALS: BP_SYST 136
--- NOTE | 2019-05-15 20:30 | NUR ---
PAIN Patient in pain, crying and agitated. PRN medication to be administered.
[2019-05-15] MEDS ORDERED: QUEtiapine FUMARATE 25 MG TABLET PO SCH (21:00)
--- NOTE | 2019-05-15 22:30 | NUR ---
ROUNDS Patient in bed, sleeping. No s/s of acute distress noted. Breathing even and unlabored. IVF infusing well. Bond traction and trapeze in place. Smith attached, secured and draining by gravity. Call light with patient. Bed alarm on. Will continue to monitor.
--- NOTE | 2019-05-16 00:30 | NUR ---
ROUNDS Patient sleeping at this time. No signs of discomfort noted. Chest rise and fall even bilaterally. IVF infusing well. [place] traction and trapeze in place. Call light with patient. Bed alarm on. Will continue to monitor.
[2019-05-16 00:47] VITALS: BP_SYST 121
--- NOTE | 2019-05-16 02:30 | NUR ---
ROUNDS Patient in bed, asleep. No s/s of acute distress noted. Breathing even and unlabored. Call light with patient. Bed alarm on. Will continue to monitor.
[2019-05-16] MEDS: D5LR 1,000 ML IV SCH ×3 (04:06→21:19)
--- NOTE | 2019-05-16 04:30 | NUR ---
ROUNDS Patient in bed sleeping. No signs of discomfort noted. Chest rise and fall even bilaterally. IVF infusing well. Smith attached and secured and draining by gravity. Trapeze and [place] traction in place. All needs met. Bed alarm on. Bed locked and at lowest position. Will continue to monitor.
[2019-05-16] MEDS: MORPHINE 2 MG/ML INJ. SYRINGE IVP PRN ×7 (05:04→23:20)
--- NOTE | 2019-05-16 05:59 | NUR ---
PAGED PAGED DR. EJ FLETCHER
[2019-05-16] MEDS: LEVOTHYROXINE SODIUM 0.025 MG TABLET PO SCH (06:06)
--- NOTE | 2019-05-16 06:15 | NUR ---
SPOKE TO DR LOPEZ RE: HIGH HEART RATE Dr. Lopez made aware of patient's high heart rate. No new orders given at this time. Patient in bed, agitated and fidgety. Will continue to monitor.
--- NOTE | 2019-05-16 06:24 | NUR ---
CLOSING NOTES Patient in bed, awake. No s/s of acute distress noted at this time. Breathing even and unlabored. IVF infusing well, IV site patent, no signs of infiltration or infection noted. Smith attached, secured, and draining by gravity. [place] traction and trapeze in place. All needs met throughout shift. Fall and safety precautions maintained throughout shift. Will continue to monitor until patient care is endorsed to oncoming dayshift nurse.
[2019-05-16 07:16] LABS: LYMPHOCYTES # (AUTO) 0.7 K/uL (1.0-5.5); LYMPHOCYTES % (AUTO) 4.3 % (20.5-51.5); MEAN CORPUSCULAR VOLUME 92 fL (79.0-98.0)
[2019-05-16 07:45] LABS: ALANINE AMINOTRANSFERASE 13 U/L (12-78); ALBUMIN 2.6 g/dL (3.4-4.8); ANION GAP 11 (5-15); ASPARTATE AMINOTRANSFERASE 22 U/L (10-37); CALCIUM 8.8 mg/dL (8.4-11.0); CHLORIDE 100 mmol/L (98-107); CREATININE 0.62 mg/dL (0.55-1.30); GLUCOSE 149 mg/dL (70-99); POTASSIUM 4.2 mmol/L (3.5-5.1); SODIUM SERUM 135 mmol/L (136-145); TOTAL BILIRUBIN 0.8 mg/dL (0.0-1.0); UREA NITROGEN, BLOOD 12 mg/dL (8-21)
[2019-05-16 07:48] VITALS: BP_SYST 117
[2019-05-16 07:55] LABS: BASOPHILS % (AUTO) 0.1 % (0.0-2.0); HEMOGLOBIN 12.5 g/dL (12.0-16.0); MEAN CORPUSCULAR HEMOGLOBIN 31 pg (27-31); MEAN CORPUSCULAR HGB CONC 34 % (32-36); MONOCYTES # (AUTO) 0.4 K/uL (0.0-1.0); MONOCYTES % (AUTO) 2.4 % (1.7-9.3); NEUTROPHILS # (AUTO) 15.3 K/uL (1.8-7.7); PLATELET COUNT (AUTO) 218 K/uL (130-430); RED BLOOD CELL COUNT(AUTO) 4.02 MIL/uL (4.2-6.2); RED CELL DISTRIBUTION WIDTH 13.2 % (9.0-15.0); WHITE BLOOD COUNT (AUTO) 16.4 K/uL (4.8-10.8)
--- NOTE | 2019-05-16 08:02 | NUR ---
OPENING NOTES SBAR received at bedside. Pt. was calm and lying in bed. AOL x1. No pain. Heart rate high at 111 bpm. Caregiver is at bedside. In addition, son came in. He asked about pt. right eye. Assessed and will mention to the doctor. Initial Assessment done. Bed rails up and bed at lower position. Call light in reach. Safety precaution. Continue to monitor.
[2019-05-16] MEDS: DOCUSATE SODIUM 100 MG CAPSULE PO SCH ×2 (08:24→21:20)
[2019-05-16] MEDS: LACTOBACILLUS RHAMNOSUS GG 1 CAP CAPSULE PO SCH ×2 (09:00→21:20)
[2019-05-16] MEDS: MULTIVITS,CA,MINERALS/IRON/FA 1 TABLET PO SCH (09:00)
[2019-05-16] MEDS: CHOLECALCIFEROL (VITAMIN D3) 2,000 UNIT TABLET PO SCH (09:00)
--- NOTE | 2019-05-16 11:05 | NUR ---
PT TAKEN DOWN TO SURGERY UNIT FOR ORIF. PT'S POA SIGNED CONSENT FOR PROCEDURE.
[2019-05-16] MEDS ORDERED: POLYMYXIN 500,000/BACIT.10,000 UNITS in NS IRR 1 L IR ONE (11:23)
[2019-05-16 11:36] LABS: NEUTROPHILS % (AUTO) 93.2 % (40.0-70.0)
[2019-05-16] MEDS ORDERED: NALOXONE HCL 0.4 MG/ML AMP (NARCAN) IVP PRN ×2 (12:30)
[2019-05-16] MEDS ORDERED: KETOROLAC TROMETHAMINE 60 MG/2 ML VIAL IM PRN (12:30)
[2019-05-16] MEDS ORDERED: fentaNYL CITRATE/PF 100 MCG/2 ML AMP IVP PRN ×2 (12:30)
[2019-05-16] MEDS ORDERED: DIPHENHYDRAMINE INJ 50 MG/ML VIAL IVP PRN (12:30)
[2019-05-16] MEDS ORDERED: ONDANSETRON HCL 4 MG/2 ML VIAL IVP PRN (12:30)
[2019-05-16] MEDS ORDERED: MORPHINE SULFATE 10MG/10ML PF AMP SP SCH (12:30)
[2019-05-16] MEDS ORDERED: NALBUPHINE HCL 10 MG/ML AMP IVP PRN (12:30)
[2019-05-16] MEDS ORDERED: BUPIVACAINE /PF 0.75% 10 ML VIAL INJ ONE (13:10)
[2019-05-16] MEDS ORDERED: MIDAZOLAM HCL 5 MG/ML VIAL (VERSED) IV ONE (13:10)
[2019-05-16] MEDS ORDERED: LR 1,000 ML IV.SOLN IV ONE (13:10)
[2019-05-16] MEDS ORDERED: MORPHINE SULFATE 10MG/10ML PF AMP ONE (13:10)
[2019-05-16] MEDS ORDERED: CEFAZOLIN 2 GM IVPB PREMIX 50 ML IV ONE (13:10)
[2019-05-16] MEDS ORDERED: NS IRRIG SOLN 1000 ML IR ONE (13:10)
[2019-05-16] MEDS ORDERED: PROPOFOL 200MG/ 20ML VIAL (DIPRIVAN) IV ONE (13:10)
[2019-05-16] MEDS ORDERED: fentaNYL CITRATE/PF 100 MCG/2 ML AMP ONE (13:10)
[2019-05-16] MEDS ORDERED: MIDAZOLAM HCL 2 MG/2 ML VIAL (VERSED) IVP ONE (13:45)
[2019-05-16] MEDS ORDERED: MIDAZOLAM HCL 2 MG/2 ML VIAL (VERSED) ONE (13:54)
[2019-05-16 14:30] VITALS: BP_SYST 107
--- NOTE | 2019-05-16 14:30 | NUR ---
pt came back from surgery, vitals wnl, no fever, pt on o2 2l nc. family at bedside. pt arousable to voice and touch. pt has good tactile sensation on the afftected foot. will cont to monitor.
[2019-05-16] MEDS ORDERED: ENOXAPARIN SODIUM 40 MG/0.4 ML SYRINGE SUBCUT ONE (14:45)
--- NOTE | 2019-05-16 16:03 | NUR ---
paged dr dinero for increase heart rate 140s-150s
--- NOTE | 2019-05-16 16:03 | NUR ---
dr boswell (covering fro dr dinero ) called back , inform that pt's hr is 140s to low 150's , said just what for now and let the morphine given 15 min ago take its effect. will monitor the pt. Addendum: 05/16/19 at 1615 by Mike Tierney RN please disregard this pt's note: wrong time entry
--- NOTE | 2019-05-16 16:10 | NUR ---
dr boswell (covering fro dr dinero ) called back , inform md that pt's hr is 140s to low 150's , md said just what for now and let the morphine take its effect. will monitor the pt.
[2019-05-16] MEDS: NEOMY SULF/BACITRA/POLYMYXIN B 3.5 GM OPHT. OINT. OP SCH ×2 (17:01→23:21)
[2019-05-16] MEDS: CEFAZOLIN 1 GM IVPB PREMIX 50 ML IV SCH ×2 (17:01→21:20)
[2019-05-16 17:11] VITALS: BP_SYST 107
[2019-05-16] MEDS: DIPHENHYDRAMINE INJ 50 MG/ML VIAL IVP PRN ×2 (17:25→23:20)
--- NOTE | 2019-05-16 17:35 | NUR ---
dr edmond called back and made aware that morphine was given but it did not affect so much the heart rate and pt is now agitated with heart rate at 140s to low 160s, asked md if we can give her ativan, md does not want to give ativan, got order to give benadryl and morphine as ordered.
--- NOTE | 2019-05-16 18:45 | NUR ---
closing notes pt bp was wnl since arrival from [facility], but heart rate has always on the high side. cardio dr boswell and pmd dr edmond is aware. morphine and benadryl given. will endose to night nurse.
--- NOTE | 2019-05-16 19:05 | NUR ---
OPENING NOTES/PAIN Patient in bed, awake, grimacing in pain. PRN medication to be administered. Nasal canula attached properly, on 3L of oxygen. Trapeze in place. IVF infusing well. IV site patent, no signs of infiltration or infection noted. NO active bleeding noted. Smith attached, secured, and draining by gravity. SCDs attached and operating. Call light with patient. Bed alarm on. Bed locked and at lowest position. Will continue to monitor.
[2019-05-16] MEDS: QUEtiapine FUMARATE 25 MG TABLET PO SCH (19:27)
[2019-05-16 20:00] VITALS: BP_SYST 107
--- NOTE | 2019-05-16 21:20 | NUR ---
PAIN Patient in pain at this time. PRN medication to be administered. Nasal canula attached properly, on 3L of oxygen. IVF infusing well. Smith attached, secured, and draining by gravity. Dressing on left hip attached, clean, and dry, no signs of active bleeding or drainage noted. Call light with patient. Bed alarm on. Will continue to monitor.
--- NOTE | 2019-05-16 23:20 | NUR ---
PAIN MEDS Pain medications administered at this time. Patient grimacing in pain. Will continue to monitor and reassess.
[2019-05-17] VITALS: BP_SYST 113
--- NOTE | 2019-05-17 01:15 | NUR ---
ROUNDS Patient sleeping at this time. No s/s of acute distress noted. Breathing even and unlabored. HOB raised, nasal canula attached properly. IVF infusing well. Heart rate at 85. SCDs attached and operating. Smith attached, secured and draining by gravity. Call light with patient. Bed alarm on. Will continue to monitor.
[2019-05-17] MEDS: MORPHINE 2 MG/ML INJ. SYRINGE IVP PRN ×4 (02:35→13:18)
--- NOTE | 2019-05-17 03:15 | NUR ---
ROUNDS Patient in bed, sleeping comfortably. NO s/s of acute distress noted. Breathing even and unlabored. IVF infusing well. Bed alarm on. Will continue to monitor.
--- NOTE | 2019-05-17 05:15 | NUR ---
PAIN Patient grimacing, heart rate elevated. PRN pain medication to be administered. Will continue to monitor and reassess.
[2019-05-17] MEDS: DIPHENHYDRAMINE INJ 50 MG/ML VIAL IVP PRN (06:17)
[2019-05-17] MEDS: LEVOTHYROXINE SODIUM 0.025 MG TABLET PO SCH (06:17)
--- NOTE | 2019-05-17 06:29 | NUR ---
CLOSING NOTES Patient awake at this time, agitated. HOB raised. Breathing even and unlabored. Nasal canula attached properly, on 3L of oxygen. Smith attached, secured, and draining by gravity. IVF infusing well, IV site patent, no signs of infiltration or infection noted. SCDs attached and operating. All needs met throughout shift. Fall and safety precautions maintained throughout shift. Will continue to monitor until patient care is endorsed to oncoming dayshift nurse.
[2019-05-17 06:49] LABS: BASOPHILS % (AUTO) 0.1 % (0.0-2.0); HEMATOCRIT 28.5 % (36-48); HEMOGLOBIN 9.8 g/dL (12.0-16.0); LYMPHOCYTES # (AUTO) 0.5 K/uL (1.0-5.5); LYMPHOCYTES % (AUTO) 4.2 % (20.5-51.5); MEAN CORPUSCULAR HEMOGLOBIN 32 pg (27-31); MEAN CORPUSCULAR HGB CONC 34 % (32-36); MEAN CORPUSCULAR VOLUME 92 fL (79.0-98.0); MONOCYTES # (AUTO) 0.6 K/uL (0.0-1.0); MONOCYTES % (AUTO) 4.9 % (1.7-9.3); NEUTROPHILS # (AUTO) 10.9 K/uL (1.8-7.7); NEUTROPHILS % (AUTO) 90.8 % (40.0-70.0); PLATELET COUNT (AUTO) 183 K/uL (130-430); RED CELL DISTRIBUTION WIDTH 13.4 % (9.0-15.0); WHITE BLOOD COUNT (AUTO) 12.1 K/uL (4.8-10.8)
[2019-05-17 07:23] LABS: ALANINE AMINOTRANSFERASE 11 U/L (12-78); ANION GAP 8 (5-15); ASPARTATE AMINOTRANSFERASE 29 U/L (10-37); CALCIUM 8.2 mg/dL (8.4-11.0); CHLORIDE 103 mmol/L (98-107); CREATININE 0.72 mg/dL (0.55-1.30); GLUCOSE 135 mg/dL (70-99); POTASSIUM 3.9 mmol/L (3.5-5.1); SODIUM SERUM 137 mmol/L (136-145); TOTAL BILIRUBIN 0.6 mg/dL (0.0-1.0); UREA NITROGEN, BLOOD 16 mg/dL (8-21)
[2019-05-17 08:15] VITALS: BP_SYST 144
--- NOTE | 2019-05-17 08:15 | NUR ---
AM ROUNDS Received patient from licensed nursing assistant nurse. Patient is alert, forgetful with son in the bed side. Aspiration precaution maintained. Breathing even and unlabored. Nasal canula attached properly, on 3L of oxygen. Smith attached, secured, and draining by gravity. IVF infusing well, IV site patent, no signs of infiltration or infection noted. SCDs attached and operating.
[2019-05-17] MEDS: DOCUSATE SODIUM 100 MG CAPSULE PO SCH ×2 (09:32→21:23)
[2019-05-17] MEDS: CHOLECALCIFEROL (VITAMIN D3) 2,000 UNIT TABLET PO SCH (09:32)
[2019-05-17] MEDS: MULTIVITS,CA,MINERALS/IRON/FA 1 TABLET PO SCH (09:32)
[2019-05-17] MEDS: ENOXAPARIN SODIUM 40 MG/0.4 ML SYRINGE SUBCUT SCH (09:33)
[2019-05-17] MEDS: LACTOBACILLUS RHAMNOSUS GG 1 CAP CAPSULE PO SCH ×2 (09:35→21:23)
[2019-05-17] MEDS: NEOMY SULF/BACITRA/POLYMYXIN B 3.5 GM OPHT. OINT. OP SCH ×2 (09:36→15:09)
[2019-05-17 11:39] VITALS: BP_SYST 157
[2019-05-17] MEDS ORDERED: SODIUM PHOSPHATE,MONO-DIBASIC 133 ML ENEMA RC PRN (12:15)
[2019-05-17] MEDS ORDERED: BISACODYL 10 MG/SUPPOSITORY RC PRN (12:15)
[2019-05-17] MEDS ORDERED: IPRATROPIUM/ALBUTEROL SULFATE 3 ML AMPUL.NEB (DUONEB) INH PRN (12:15)
[2019-05-17] MEDS ORDERED: guaiFENesin/DEXTROMETHORPHAN 10 ML UDC PO PRN (12:15)
--- NOTE | 2019-05-17 12:19 | NUR ---
Cough and constipation: Patient noted with cough, unable to expectorate. Family also stated that patient had no BM for 5 days. Orders received from MD. RT is notified to initiate breathing treatment.
--- NOTE | 2019-05-17 12:51 | NUR ---
Dietitian Recommendations *Recommend Regular diet w/ Ensure Enlive TID and Sony BID. ONS and modular will provide additional 860 kcal and 45 gm protein daily. *Consider Meagce to stimulate appetite. Continue MVI supplements. *Encourage pt to increase PO intake. Please see Nutritional Assessment for details. MICHAEL, RD
[2019-05-17] MEDS ORDERED: IPRATROPIUM/ALBUTEROL SULFATE 3 ML AMPUL.NEB (DUONEB) INH ONE (13:00)
--- NOTE | 2019-05-17 13:21 | NUR ---
ENEMA Enema was given for constipation.
--- NOTE | 2019-05-17 13:38 | NUR ---
DC PLANNING: ODALIS faxed clinical packet to Sari ([facility]ALIS @ [facility]) @ [facility] . CM/DCP to follow up as needed.
--- NOTE | 2019-05-17 14:00 | NUR ---
IV START IV was infiltrated. started gauge 22 in left wrist. Patency was noted. IV fluids resume. Old IV removed. Catheter was intact. Arm was elevated with a pillow.
[2019-05-17 15:30] VITALS: BP_SYST 113
[2019-05-17] MEDS ORDERED: COMMUNICATION ORDER XX ONE (16:45)
[2019-05-17] MEDS ORDERED: DEXTROSE 50% JECT 50 ML DISP.SYRIN IVP PRN (17:15)
[2019-05-17] MEDS ORDERED: *PPN PER PHARMACY XX PRN (17:15)
[2019-05-17] MEDS: PIPERACILLIN/TAZO 3.375/DEX-IS 50 ML IV SCH (18:25)
[2019-05-17] MEDS: QUEtiapine FUMARATE 25 MG TABLET PO SCH (18:31)
--- NOTE | 2019-05-17 18:34 | NUR ---
CLOSING NOTES Patient asleep. Breathing even and unlabored. No signs of respiratory distress. Nasal canula attached properly, on 3L of oxygen. Smith attached, secured, and draining by gravity. IVF infusing well, IV site Left Wrist patent, no signs of infiltration or infection noted. SCDs attached and operating. All needs met. Fall and safety precautions. Endorsed to fast food shift supervisor for continuity of care.
[2019-05-17] MEDS: IPRATROPIUM/ALBUTEROL SULFATE 3 ML AMPUL.NEB (DUONEB) INH SCH (19:09)
--- NOTE | 2019-05-17 19:25 | NUR ---
initial notes: pt is resting. no sign of pain. and distress. no sob. ivf is infusing to left fore arm gauge 22-no sign of infiltration. pt has incision to left hip- dressing is dry and intact. scd on bilateral leg seen. family member at bedside. discuss to family member plan of care, they verbalized understanding. needs attended. call light in reach. side rails up. safety on . will monitor.
--- NOTE | 2019-05-17 20:15 | NUR ---
check pt back no ski breakdown. reposition. instructed pt to use I.S.- pt is confused. but demonstrate how to use by simple instruction. I.S.-1000ml. tolerate well. Addendum: 05/18/19 at 0129 by Yimi Lucero RN primary managed care nurse at bedside. inform [employer]care marine engine machinist that pt needs to use IS every hour while pt is awake.
[2019-05-17 21:01] VITALS: BP_SYST 150
[2019-05-17] MEDS: D5LR 1,000 ML IV SCH (21:24)
--- NOTE | 2019-05-17 22:19 | NUR ---
picc line nurse put in mid line to right upper arm- pt tolerate well. no bleeding to insertion site.
[2019-05-18] VITALS (7 sets, daily range): BP systolic 95–160
--- NOTE | 2019-05-18 | NUR ---
pt is awake. complain of pain to her left hip. stable. no acute distress. vitals sign are with in normal limit. explain to home care administrator the pain medication side effects cause pt is confused. reposition. pt also Perform I.S. needs attended. robyn rails up. low bed position and lock.
[2019-05-18] MEDS: PIPERACILLIN/TAZO 3.375/DEX-IS 50 ML IV SCH ×4 (00:06→17:49)
[2019-05-18] MEDS: NEOMY SULF/BACITRA/POLYMYXIN B 3.5 GM OPHT. OINT. OP SCH ×3 (00:06→16:21)
[2019-05-18] MEDS: MORPHINE 2 MG/ML INJ. SYRINGE IVP PRN ×5 (00:08→22:36)
[2019-05-18] MEDS: DIPHENHYDRAMINE INJ 50 MG/ML VIAL IVP PRN (01:37)
--- NOTE | 2019-05-18 01:42 | NUR ---
pt is awake, alert. no pain. no sob, stable. career guidance counselor report pt is itchy. benadryl given. needs attended. call light in reach. will monitor.
--- NOTE | 2019-05-18 04:00 | NUR ---
sleeping. no acute distress. no sob. no pain. ivf infusing well. safety. care center manager at bedside.
[2019-05-18] MEDS: D5LR 1,000 ML IV SCH (06:22)
[2019-05-18] MEDS: LEVOTHYROXINE SODIUM 0.025 MG TABLET PO SCH (06:23)
[2019-05-18 06:27] LABS: BASOPHILS % (AUTO) 0.1 % (0.0-2.0); EOSINOPHILS % (AUTO) 0.1 % (0.0-4.0); HEMATOCRIT 27.7 % (36-48); HEMOGLOBIN 9.6 g/dL (12.0-16.0); LYMPHOCYTES # (AUTO) 0.4 K/uL (1.0-5.5); LYMPHOCYTES % (AUTO) 3.8 % (20.5-51.5); MEAN CORPUSCULAR HEMOGLOBIN 32 pg (27-31); MEAN CORPUSCULAR HGB CONC 35 % (32-36); MEAN CORPUSCULAR VOLUME 91 fL (79.0-98.0); MONOCYTES # (AUTO) 0.5 K/uL (0.0-1.0); MONOCYTES % (AUTO) 4.5 % (1.7-9.3); NEUTROPHILS # (AUTO) 10.6 K/uL (1.8-7.7); NEUTROPHILS % (AUTO) 91.5 % (40.0-70.0); PLATELET COUNT (AUTO) 198 K/uL (130-430); RED BLOOD CELL COUNT(AUTO) 3.05 MIL/uL (4.2-6.2); RED CELL DISTRIBUTION WIDTH 13.2 % (9.0-15.0); WHITE BLOOD COUNT (AUTO) 11.6 K/uL (4.8-10.8)
--- NOTE | 2019-05-18 06:30 | NUR ---
notes: pt is awake, confused. no pain. no sob. encourage IS. needs attended. call light in reach. will continue to monitor. career information specialist at bedside.
[2019-05-18 06:34] LABS: ALANINE AMINOTRANSFERASE 22 U/L (12-78); ALBUMIN 1.9 g/dL (3.4-4.8); ANION GAP 7 (5-15); ASPARTATE AMINOTRANSFERASE 36 U/L (10-37); CALCIUM 8.2 mg/dL (8.4-11.0); CHLORIDE 105 mmol/L (98-107); CREATININE 0.65 mg/dL (0.55-1.30); GLUCOSE 147 mg/dL (70-99); PHOSPHORUS 2.4 mg/dL (2.7-4.5); SODIUM SERUM 140 mmol/L (136-145); TOTAL BILIRUBIN 0.8 mg/dL (0.0-1.0); UREA NITROGEN, BLOOD 14 mg/dL (8-21)
[2019-05-18 06:42] LABS: POTASSIUM 2.9 mmol/L (3.5-5.1)
--- NOTE | 2019-05-18 06:43 | NUR ---
PAGED DR. MURRELL PAGED PER NURSE DIALED [phone] SPOKE TO FLACA
[2019-05-18] MEDS ORDERED: POTASSIUM CHLORIDE 40 MEQ in NS 250 ML IV ONE (07:00)
[2019-05-18 07:13] LABS: CHOLESTEROL 139 mg/dL (<200); HDL CHOLESTEROL 55 mg/dL (>55); TRIGLYCERIDES 50 mg/dL (30-150)
[2019-05-18 07:14] LABS: LDL CHOLESTEROL 64 mg/dL (<100)
[2019-05-18] MEDS: IPRATROPIUM/ALBUTEROL SULFATE 3 ML AMPUL.NEB (DUONEB) INH SCH ×4 (07:26→20:19)
--- NOTE | 2019-05-18 07:26 | NUR ---
CLOSING: pt is resting. no sing of distress and pain. ivf infusing well. romo draining by gravity. son at bedside. needs attended. bedside report given to am rn.
--- NOTE | 2019-05-18 07:30 | NUR ---
AM ROUNDS Received patient from shift stacker nurse. Patient is alert, forgetful and cooperative. Son at the bedside. O2 2L with humidifier. SCD' in place. Smith catheter in place and draining. Midline the right upper arm. Dressing dry and intact. NO redness and swelling. HOB raised. Assessment done per protocol. Neuro check, vital signs taken and recorded.
[2019-05-18] MEDS: ENOXAPARIN SODIUM 40 MG/0.4 ML SYRINGE SUBCUT SCH (09:13)
[2019-05-18] MEDS: DOCUSATE SODIUM 100 MG CAPSULE PO SCH ×2 (09:14→21:20)
[2019-05-18] MEDS: MULTIVITS,CA,MINERALS/IRON/FA 1 TABLET PO SCH (09:15)
[2019-05-18] MEDS: CHOLECALCIFEROL (VITAMIN D3) 2,000 UNIT TABLET PO SCH (09:15)
[2019-05-18] MEDS: LACTOBACILLUS RHAMNOSUS GG 1 CAP CAPSULE PO SCH ×2 (09:15→21:21)
[2019-05-18] MEDS: MEGESTROL ACETATE 400 MG/10 ML UDC PO SCH (09:25)
--- NOTE | 2019-05-18 10:10 | NUR ---
RN ROUNDS Patient sitting in the couch, son in the bed side. Patient was encourage to use IS. Patient is cooperative. Needs are met. Safety precaution in place. Call light within reach. Will continue to monitor
--- NOTE | 2019-05-18 13:00 | NUR ---
RN ROUNDS Patient is awake in bed with family in the bed side. No signs respiratory distress. No complaints of discomfort at this time. Call light within reach. Will continue to monitor patient.
--- NOTE | 2019-05-18 14:54 | NUR ---
Nutrition F/U RD reviewed pt's current EMR record including diet Hx, physician notes, nursing notes, pertinent labs/meds/procedures, care trends, and care activity. Current Diet Order: pureed, Ensure Enlive BID, Sony BID, x0 days Current Nutrition Support: PPN D20%, AA8.5% at 42 ml/hr, IL20% at 10 ml/hr via peripheral line Subjective Info: Pt seen resting in bed w/ son at bedside. Plans for pt to start on PPN support w/ lipids later today d/t poor PO intakes. Pt is POD 2 s/p ORIF. Son stated that pt's appetite continues low; 25% PO intakes noted at breakfast per EMR. Bedscale wt taken: 139# -- likely inaccurate d/t linens. RD spoke w/ pt's primary RN to inquire about possibility for NGT placement for EN support instead of PPN support to help preserve gut integrity, however, RN stated that pt is not a good candidate for this, and Dr. Holliday agreed, therefore PPN support order now in place to prevent further suboptimal nutritional intakes. Current % PO 25% x1 meal Estimated Energy Expenditure (kcals/day) 0916-4404 kcal/day (30-35 kcal/kg CBW for post surgery repletion) Estimated Protein Required (g/day) 57-86 gm/day (1-1.5 gm/kg CBW for wound healing) Estimated Fluid Required (l/day) 1.7-2L/day (1ml/calorie for constipation) Problem/Etiology/Signs/Symptoms Inadequate nutrient intake r/t poor appetite AEB PO intake meeting <75% of estimated needs and report of poor food intake INSTRUMENT DESIGNER. *ongoing Increased nutrient needs r/t metabolic demands AEB estimated calories and protein for wound healing post surgery. *ongoing Expected Outcomes/Goals Monitor appetite and PO intake w/ goal of pt meeting at least 75% of estimated nutritional needs, labs trending WNL, normal GI function, skin integrity/wt maintenance. Dietitian Recommendations * Recommend pureed, Ensure Enlive TID, Sony BID (ONS and modular provide 1230 kcal/day, 65 gm protein/day) * Recommend continuing PPN D20%, AA8.5% at 42 ml/hr, IL20% at 10 ml/hr via peripheral line Provides: 994 kcal/day, 43 gm protein/day, 1248 ml total volume/day, and GIR: 1.2 gm CHO/kg/min Meets: 58% of lower end of estimated caloric needs and 75% of lower end of estimated protein needs Follow Up High Risk: F/U in 2-3 days
--- NOTE | 2019-05-18 15:05 | NUR ---
Dietitian Recommendations * Recommend pureed, Ensure Enlive TID, Sony BID (ONS and modular provide 1230 kcal/day, 65 gm protein/day) * Recommend continuing PPN D20%, AA8.5% at 42 ml/hr, IL20% at 10 ml/hr via peripheral line Provides: 994 kcal/day, 43 gm protein/day, 1248 ml total volume/day, and GIR: 1.2 gm CHO/kg/min Meets: 58% of lower end of estimated caloric needs and 75% of lower end of estimated protein needs LP, RD Please refer to Nutrition F/U for details.
--- NOTE | 2019-05-18 15:42 | NUR ---
Patient removed nasal cannula. Check her oxygen saturation in room air it was 96%. No signs of Respiratory distress. Encourage patient to practice deep breathing. Patient cooperates. Family at the bedside. Will continue to monitor patient.
--- NOTE | 2019-05-18 16:43 | NUR ---
Tachycardia: Heart is in the 150's. Patient appears un easy, temp is 99.7. Medicated with morphine for pain, tylenol given for the low grade fever. Ice pack to forehead for cooling measures.
[2019-05-18] MEDS ORDERED: DILTIAZEM HCL 25 MG/5 ML VIAL IVP ONE ×2 (17:00→17:30)
[2019-05-18] MEDS ORDERED: DILTIAZEM HCL 25 MG/5 ML VIAL ONE (17:19)
[2019-05-18] MEDS ORDERED: COMMUNICATION ORDER XX ONE (17:30)
--- NOTE | 2019-05-18 17:36 | NUR ---
Afib with Rapid Ventricular rate: Dr. Holliday is aware of 12 lead EKG result. Cardizem 10 mg IVP given x 2 doses (1701 and 1730).
[2019-05-18] MEDS: QUEtiapine FUMARATE 25 MG TABLET PO SCH (17:49)
--- NOTE | 2019-05-18 17:56 | NUR ---
MD ROUNDS/RN ROUNDS Dr. Holliday came and see the patient and talk to son in the bed side. New orders receive. Medication per MD order was given. Vital signs taken and recorded. Patient still in tachycardia. Will continue to monitor.
[2019-05-18] MEDS ORDERED: POTASSIUM CHLORIDE 40 MEQ, LIDOCAINE JECT 2% PF 100 MG 50 MG in NS 250 ML IV ONE (18:00)
[2019-05-18] MEDS ORDERED: DILTIAZEM HCL 125 MG in D5W 100 ML IV SCH (18:00)
--- NOTE | 2019-05-18 18:19 | NUR ---
Decreased Urine output: Urine output is [address] Holliday is aware.
--- NOTE | 2019-05-18 18:51 | NUR ---
CARDIO UPDATE Dr. Hodge is aware of Afib with RVR and medication given.
--- NOTE | 2019-05-18 19:15 | NUR ---
OPENING NOTE PATIENT RESTING IN BED, A/OX1, WITH FAMILY AT BEDSIDE. PT ON ROOM AIR SATTING WELL. NO ACUTE DISTRESS. NO SOB. RESPIRATION EVEN AND UNLABORED. SKIN WARM AND DRY TO TOUCH. IV INTACT AND PATENT, MIDLINE DRESSING TO RIGHT UPPER ARM IS CLEAN/DRY/INTACT. EDGAR CATH DRAINING CORI URINE. INCISION DRESSING TO LEFT HIP IS CLEAN/DRY/INTACT. BED IN LOW AND LOCKED POSITION. SIDERAIL UPX3. BED ALARM ON. CALL LIGHT WITH PT. CLOSE TO NURSES STATION. WILL CONT TO MONITOR.
[2019-05-18] MEDS ORDERED: FAT EMULSIONS 250 ML IV SCH (21:00)
[2019-05-18] MEDS ORDERED: POTASSIUM CHLORIDE IV SCH ×10 (21:00)
[2019-05-18] MEDS ORDERED: [UNRECOGNIZED DRUG - OTHER] IV SCH ×10 (21:00)
[2019-05-18] MEDS ORDERED: TPN PERIPHERAL IV SCH ×10 (21:00)
[2019-05-18] MEDS ORDERED: SODIUM CHLORIDE IV SCH ×10 (21:00)
--- NOTE | 2019-05-18 21:57 | NUR ---
TPN/LIPIDS TPN AND LIPIDS STARTED TO RIGHT UPPER ARM MIDLINE. MEDICATIONS CHECKED AND VERIFIED WITH SECOND LICENSED RN. MEDICATION INDICATIONS AND POTENTIAL SIDE EFFECTS EXPLAINED. SAFETY PRECAUTIONS MAINTAINED, CAREGIVER AT BEDSIDE. WILL MONITOR CLOSELY.
[2019-05-18] MEDS: INSULIN REGULAR, HUMAN 100 UNITS/ML, 10 ML VIAL (humuLIN R) SUBCUT PRN (22:34)
--- NOTE | 2019-05-18 22:36 | NUR ---
RN NOTE: ACCUCHECK SHOWED BS OF 199, 2 UNITS OF REGULAR INSULIN ADMINISTERED PER SLIDING SCALE. MORPHINE 2 MG IVP ADMINISTERED FOR SEVERE PAIN TO LEFT HIP. MEDICATIONS AND POTENTIAL SIDE EFFECTS EXPLAINED TO PT. PT CONFUSED AND DID NOT VERBALIZE UNDERSTANDING. NO S/S OF DISTRESS. SAFETY MAINTAINED. PT'S CAREGIVER IS AT BEDSIDE. WILL MONITOR.
[2019-05-19] MEDS: PIPERACILLIN/TAZO 3.375/DEX-IS 50 ML IV SCH ×4 (00:50→17:43)
[2019-05-19] MEDS: NEOMY SULF/BACITRA/POLYMYXIN B 3.5 GM OPHT. OINT. OP SCH ×3 (00:50→17:39)
--- NOTE | 2019-05-19 00:50 | NUR ---
ANTIBIOTIC SCHEDULED ZOSYN ADMINISTERED VIA IVPB. NO S/S OF ADVERSE REACTION. PT IS RESTING COMFORTABLY IN BED. BREATHING IS EVEN AND UNLABORED TO ROOM AIR. SAFETY PRECAUTIONS OBSERVED, PT'S CAREGIVER REMAINS AT BEDSIDE. WILL MONITOR.
[2019-05-19 01:07] VITALS: BP_SYST 107
[2019-05-19] MEDS: MORPHINE 2 MG/ML INJ. SYRINGE IVP PRN ×3 (02:14→09:07)
--- NOTE | 2019-05-19 02:14 | NUR ---
PAIN/MORPHINE MORPHINE 2 MG IVP ADMINISTERED FOR REPORT OF SEVERE PAIN TO LEFT HIP. NO S/S OF DISTRESS. RESPIRATIONS ARE UNLABORED TO ROOM AIR. SAFETY MAINTAINED. PT'S CAREGIVER IS AT BEDSIDE. WILL MONITOR.
[2019-05-19] MEDS: DIPHENHYDRAMINE INJ 50 MG/ML VIAL IVP PRN (03:37)
--- NOTE | 2019-05-19 03:37 | NUR ---
BENADRYL BENADRYL 25MG IVP ADMINISTERED PER PT REQUEST. MEDICATION AND POTENTIAL SIDE EFFECTS DISCUSSED. NO S/S OF DISTRESS. SAFETY MAINTAINED. WILL MONITOR.
--- NOTE | 2019-05-19 05:15 | NUR ---
REPOSITIONED PT REPOSITIONED WITH ASSISTANCE FROM EMERALD AREVALO. PILLOW SUPPORT IS IN PLACE. SAFETY PRECAUTIONS MAINTAINED. WILL MONITOR.
[2019-05-19] MEDS: LEVOTHYROXINE SODIUM 0.025 MG TABLET PO SCH (06:16)
--- NOTE | 2019-05-19 06:26 | NUR ---
MED PASS PT GIVEN SCHEDULED SYNTHROID AND ZOSYN ORDERED. PRN MORPHINE 2 MG IVP ALSO ADMINISTERED FOR SEVERE PAIN. ACCUCHECK SHOWED BLOOD SUGAR OF 125, NO INSULIN COVERAGE INDICATED PER SLIDING SCALE. SAFETY MAINTAINED. WILL MONITOR.
--- NOTE | 2019-05-19 06:56 | NUR ---
CLOSING NOTE PATIENT RESTING IN BED, A/OX1, WITH CAREGIVER AT BEDSIDE. PT ON ROOM AIR TOLERATING WELL. NO ACUTE DISTRESS. NO SOB. RESPIRATION EVEN AND UNLABORED. SKIN WARM AND DRY TO TOUCH. IV INTACT AND PATENT, MIDLINE DRESSING TO RIGHT UPPER ARM IS CLEAN/DRY/INTACT. LIPIDS AND TPN ARE INFUSING ORDERED TO UPPER ARM MIDLINE. EDGAR CATH DRAINING CLEAR YELLOW URINE. INCISION DRESSING TO LEFT HIP IS CLEAN/DRY/INTACT. BED IN LOW AND LOCKED POSITION. SIDERAIL UPX3. BED ALARM ON. CALL LIGHT WITH PT. CLOSE TO NURSES STATION. ALL NEEDS MET DURING SHIFT. PAIN HAS BEEN MANAGED THROUGHOUT SHIFT. WILL CONT TO MONITOR UNTIL PT CARE IS ENDORSED TO DAY SHIFT RN.
[2019-05-19 07:07] LABS: BASOPHILS % (AUTO) 0.3 % (0.0-2.0); EOSINOPHILS # (AUTO) 0.1 K/uL (0.0-0.4); EOSINOPHILS % (AUTO) 0.7 % (0.0-4.0); HEMATOCRIT 26.9 % (36-48); HEMOGLOBIN 9.6 g/dL (12.0-16.0); LYMPHOCYTES # (AUTO) 0.4 K/uL (1.0-5.5); LYMPHOCYTES % (AUTO) 3.4 % (20.5-51.5); MEAN CORPUSCULAR HEMOGLOBIN 32 pg (27-31); MEAN CORPUSCULAR HGB CONC 36 % (32-36); MEAN CORPUSCULAR VOLUME 91 fL (79.0-98.0); MONOCYTES # (AUTO) 0.5 K/uL (0.0-1.0); MONOCYTES % (AUTO) 4.9 % (1.7-9.3); NEUTROPHILS # (AUTO) 9.6 K/uL (1.8-7.7); NEUTROPHILS % (AUTO) 90.7 % (40.0-70.0); PLATELET COUNT (AUTO) 218 K/uL (130-430); RED BLOOD CELL COUNT(AUTO) 2.96 MIL/uL (4.2-6.2); RED CELL DISTRIBUTION WIDTH 13.1 % (9.0-15.0); WHITE BLOOD COUNT (AUTO) 10.6 K/uL (4.8-10.8)
--- NOTE | 2019-05-19 07:20 | NUR ---
Opening Note Received bedside report from endorsing RN for continuation of care. Received patient awake and resting in bed, no signs or symptoms of acute distress noted. Bed locked in lowest position, bed alarm on, and call light within reach. Fall and safety precautions in place. Patient's son Raulito at bedside. Education provided and all questions answered clearly.
[2019-05-19 07:22] LABS: ANION GAP 6 (5-15); CALCIUM 8.6 mg/dL (8.4-11.0); CHLORIDE 105 mmol/L (98-107); GLUCOSE 129 mg/dL (70-99); PHOSPHORUS 1.7 mg/dL (2.7-4.5); POTASSIUM 4.2 mmol/L (3.5-5.1); SODIUM SERUM 138 mmol/L (136-145); UREA NITROGEN, BLOOD 11 mg/dL (8-21)
[2019-05-19] MEDS: IPRATROPIUM/ALBUTEROL SULFATE 3 ML AMPUL.NEB (DUONEB) INH SCH ×4 (07:33→19:50)
[2019-05-19 08:00] VITALS: BP_SYST 119
[2019-05-19] MEDS ORDERED: CYSTOGRAFIN 300 ML INFUS..BTL UR ONE (08:15)
--- NOTE | 2019-05-19 08:25 | NUR ---
Dr. Hodge in to see patient. New orders received.
[2019-05-19] MEDS: MEGESTROL ACETATE 400 MG/10 ML UDC PO SCH (09:03)
[2019-05-19] MEDS: LACTOBACILLUS RHAMNOSUS GG 1 CAP CAPSULE PO SCH ×2 (09:03→20:40)
[2019-05-19] MEDS: CHOLECALCIFEROL (VITAMIN D3) 2,000 UNIT TABLET PO SCH (09:03)
[2019-05-19] MEDS: DOCUSATE SODIUM 100 MG CAPSULE PO SCH ×2 (09:03→20:41)
[2019-05-19] MEDS: MULTIVITS,CA,MINERALS/IRON/FA 1 TABLET PO SCH (09:03)
[2019-05-19] MEDS: DILTIAZEM HCL 60 MG TABLET PO SCH ×2 (09:05→20:44)
[2019-05-19] MEDS: ENOXAPARIN SODIUM 40 MG/0.4 ML SYRINGE SUBCUT SCH (09:06)
--- NOTE | 2019-05-19 09:25 | NUR ---
Patient up with PT. No signs or symptoms of acute distress noted. Educated patient regarding physical therapy.
[2019-05-19] MEDS ORDERED: NA PHOS 15 MM in NS 250 ML IV ONE (11:30)
--- NOTE | 2019-05-19 11:31 | NUR ---
Discharge Planning: DCP Sari dimas (f [phone] p [phone]) faxed updated PT notes, DCP to follow up.
[2019-05-19 11:39] VITALS: BP_SYST 111
[2019-05-19] MEDS: INSULIN REGULAR, HUMAN 100 UNITS/ML, 10 ML VIAL (humuLIN R) SUBCUT PRN ×2 (12:12→20:54)
[2019-05-19] MEDS: traMADol HCL HCL 50 MG TABLET (ULTRAM) PO PRN ×2 (12:19→22:45)
[2019-05-19] MEDS ORDERED: FLU VACC TS2019(65UP)/MF59C/PF 45 MCG/0.5 ML SYRINGE I.M. PRN (14:30)
--- NOTE | 2019-05-19 14:30 | NUR ---
Dr. Holliday at bedside examining patient and updating patient and family on patient status and plan of care. New orders received.
--- NOTE | 2019-05-19 15:37 | NUR ---
Patient awake and resting in bed, no signs or symptoms of acute distress noted. Family at bedside. Fall and safety precautions in place.
[2019-05-19 16:03] VITALS: BP_SYST 155
[2019-05-19] MEDS: QUEtiapine FUMARATE 25 MG TABLET PO SCH (17:39)
--- NOTE | 2019-05-19 18:52 | NUR ---
Closing Note Patient awake and resting in bed, eating dinner. Family at bedside. No signs or symptoms of acute distress noted.
--- NOTE | 2019-05-19 19:44 | NUR ---
SPOKE TO DR. MURRELL REGARDING FAMILY REQUEST FOR PT TO HAVE A SLEEPING AID. DR. MURRELL STATED TO GIVE THE PT BENADRYL 25 MG PO ONCE NOW AND TO GIVE A SECOND DOSE OF BENADRYL 25 MG PO ONCE IN TWO HOURS IF THE FIRST DOSE IS INEFFECTIVE. DR. MURRELL ALSO INCREASED SEROQUEL DOSE TO 50 MG PO QPM. WILL CARRY OUT.
[2019-05-19] MEDS ORDERED: DIPHENHYDRAMINE HCL 25 MG CAPSULE PO ONE ×2 (19:45→23:00)
--- NOTE | 2019-05-19 19:48 | NUR ---
OPENING NOTE PATIENT RESTING IN BED, A/OX1, WITH FAMILY AT BEDSIDE. PT ON ROOM AIR TOLERATING WELL. NO ACUTE DISTRESS. NO SOB. RESPIRATION EVEN AND UNLABORED. SKIN WARM AND DRY TO TOUCH. IV INTACT AND PATENT, MIDLINE DRESSING TO RIGHT UPPER ARM IS CLEAN/DRY/INTACT. EDGAR CATH DRAINING CLEAR YELLOW URINE. PT'S FAMILY REQUESTING PT GET A SLEEP AID TONIGHT. INCISION DRESSING TO LEFT HIP IS CLEAN/DRY/INTACT. BED IN LOW AND LOCKED POSITION. SIDERAIL UPX3. BED ALARM ON. CALL LIGHT WITH PT. CLOSE TO NURSES STATION. WILL CONT TO MONITOR. Addendum: 05/19/19 at 1949 by Brigitte Mercado RN SABINO TIME: 1914
[2019-05-19 20:00] VITALS: BP_SYST 130
--- NOTE | 2019-05-19 20:40 | NUR ---
BENADRYL BENADRYL 25 MG PO GIVEN A ONE TIME DOSE TO HELP WITH SLEEP.
--- NOTE | 2019-05-19 20:51 | NUR ---
ACCUCHECK BLOOD SUGASR OF 225, 4 UNITS OF REGULAR INSULIN GIVEN PER SLIDING SCALE.
[2019-05-19] MEDS ORDERED: TPN PERIPHERAL IV SCH ×9 (21:00)
[2019-05-19] MEDS ORDERED: SODIUM CHLORIDE IV SCH ×9 (21:00)
[2019-05-19] MEDS ORDERED: [UNRECOGNIZED DRUG - OTHER] IV SCH ×9 (21:00)
[2019-05-19] MEDS ORDERED: POTASSIUM CHLORIDE IV SCH ×9 (21:00)
--- NOTE | 2019-05-19 22:45 | NUR ---
BENADRYL SECOND DOSE SECOND ONE TIME ORDER OF BENADRYL 25 MG PO GIVEN.
[2019-05-20 00:25] VITALS: BP_SYST 102
[2019-05-20] MEDS: NEOMY SULF/BACITRA/POLYMYXIN B 3.5 GM OPHT. OINT. OP SCH ×4 (00:56→23:32)
[2019-05-20] MEDS: PIPERACILLIN/TAZO 3.375/DEX-IS 50 ML IV SCH ×5 (00:56→23:32)
--- NOTE | 2019-05-20 00:56 | NUR ---
ANTIBIOTIC SCHEDULED ZOSYN ADMINISTERED VIA IVPB. NO S/S OF ADVERSE REACTION. WILL CONT TO MONITOR CLOSELY.
--- NOTE | 2019-05-20 02:45 | NUR ---
RESTING PT RESTING IN BED WITH EYES CLOSED. VISIBLE SYMMETRICAL RISE AND FALL OF CHEST TO ROOM AIR. NO S/S OF ACUTE DISTRESS. EDGAR CATHETER IS DRAINING TO GRAVITY. NO S/S OF PAIN AT THIS TIME. SAFETY MAINTAINED. CAREGIVER IS AT BEDSIDE. WILL CONT TO MONITOR.
[2019-05-20] MEDS: traMADol HCL HCL 50 MG TABLET (ULTRAM) PO PRN (05:16)
--- NOTE | 2019-05-20 05:16 | NUR ---
PAIN/ULTRAM ULTRAM GIVEN FOR LEFT HIP PAIN. MEDICATION CRUSHED AND GIVEN WITH VANILLA PUDDING. PT TOLERATED WELL. SAFETY PRECAUTIONS ARE IN PLACE. WILL MONITOR.
--- NOTE | 2019-05-20 05:55 | NUR ---
REPOSITIONED PT REPOSITIONED WITH PILLOW SUPPORT. PT TOLERATED WELL. NO S/S OF DISTRESS. WILL MONITOR.
[2019-05-20] MEDS: LEVOTHYROXINE SODIUM 0.025 MG TABLET PO SCH (06:10)
--- NOTE | 2019-05-20 06:10 | NUR ---
RN NOTE ACCUCHECK SHOWED BLOOD SUGAR OF 90, NO INSULIN COVERAGE INDICATED PER SLIDING SCALE. SYNTHROID GIVEN CRUSHED WITH APPLESAUCE. PT REPOSITIONED FOR COMFORT. SAFETY MAINTAINED. WILL MONITOR.
[2019-05-20 06:50] LABS: ANION GAP 6 (5-15); CALCIUM 9.1 mg/dL (8.4-11.0); CHLORIDE 104 mmol/L (98-107); CREATININE 0.58 mg/dL (0.55-1.30); GLUCOSE 92 mg/dL (70-99); PHOSPHORUS 3.2 mg/dL (2.7-4.5); POTASSIUM 4.3 mmol/L (3.5-5.1); SODIUM SERUM 135 mmol/L (136-145); UREA NITROGEN, BLOOD 12 mg/dL (8-21)
--- NOTE | 2019-05-20 06:54 | NUR ---
CLOSING NOTE PATIENT RESTING IN BED, A/OX1, WITH CAREGIVER AT BEDSIDE. PT ON ROOM AIR TOLERATING WELL. NO ACUTE DISTRESS. NO SOB. RESPIRATION EVEN AND UNLABORED. SKIN WARM AND DRY TO TOUCH. IV INTACT AND PATENT, MIDLINE DRESSING TO RIGHT UPPER ARM IS CLEAN/DRY/INTACT. EDGAR CATH DRAINING CLEAR YELLOW URINE. INCISION DRESSING TO LEFT HIP IS CLEAN/DRY/INTACT. BED IN LOW AND LOCKED POSITION. SIDERAIL UPX3. BED ALARM ON. CALL LIGHT WITH PT. CLOSE TO NURSES STATION. ALL NEEDS MET DURING SHIFT. PAIN HAS BEEN MANAGED THROUGHOUT SHIFT. WILL CONT TO MONITOR UNTIL PT CARE IS ENDORSED TO DAY SHIFT RN.
[2019-05-20] MEDS: IPRATROPIUM/ALBUTEROL SULFATE 3 ML AMPUL.NEB (DUONEB) INH SCH ×4 (07:00→19:47)
--- NOTE | 2019-05-20 07:20 | NUR ---
RN OPENING NOTE REPORT WAS ENDORSED BY NIGHT NURSE. FAMILY IS AT BED SIDE. PATIENT APPEARS TO BE RESTING WITH NO SIGNS OF ANY DISTRESS, BREATHING IS EQUAL AND NON LABORED. FAMILY EDUCATED TO USE CALL LIGHT FOR ASSISTANCE. PATIENT IS CLOSE TO NURSES STATION. PATIENT HAS NO OTHER NEEDS AT THIS TIME. WILL CONTINUE TO MONITOR.
[2019-05-20 09:19] VITALS: BP_SYST 101
[2019-05-20] MEDS: MEGESTROL ACETATE 400 MG/10 ML UDC PO SCH (09:22)
[2019-05-20] MEDS: CHOLECALCIFEROL (VITAMIN D3) 2,000 UNIT TABLET PO SCH (09:22)
[2019-05-20] MEDS: MULTIVITS,CA,MINERALS/IRON/FA 1 TABLET PO SCH (09:22)
[2019-05-20] MEDS: DOCUSATE SODIUM 100 MG CAPSULE PO SCH ×2 (09:22→20:47)
[2019-05-20] MEDS: LACTOBACILLUS RHAMNOSUS GG 1 CAP CAPSULE PO SCH ×2 (09:22→20:47)
[2019-05-20] MEDS: ENOXAPARIN SODIUM 40 MG/0.4 ML SYRINGE SUBCUT SCH (09:25)
--- NOTE | 2019-05-20 09:28 | NUR ---
Medication Patient is laying in bed no signs of any distress, breathing is equal and non labored. Patient is refusing to use IS at this time. Patient has pain in left hip. Patients family is at bed side. Patients family did not want me to wake the any earlier. Patients family educated cushion assembler light for assistance call light is with patient. Patient has no other needs at this time. will continue to monitor.
[2019-05-20] MEDS: MORPHINE 2 MG/ML INJ. SYRINGE IVP PRN ×3 (09:42→23:39)
--- NOTE | 2019-05-20 11:30 | NUR ---
rn rounding Patients family is refusing for ACCU check to be done , education was done, states the am accu check was normal and she is sleeping let her sleep. Patient has all safety precautions in place. Call light is with her. Educated family to use call light for assistance. will continue to monitor.
[2019-05-20 12:23] VITALS: BP_SYST 109
--- NOTE | 2019-05-20 13:00 | NUR ---
rn rounding Patient is awake and alert, family is at bed side. Patient has all safety precautions in place. no signs of any distress, breathing is equal and non labored. Patient attempted to educate on IS unable to understanding. Patient has call light with her. educated patient and family mason tender light. Patient is close to nurses station. no other needs at this time. will continue to monitor.
--- NOTE | 2019-05-20 13:57 | NUR ---
PHYSICAL THERAPY CO-SIGN The Physical Therapy Progress Notes documented by Le[employer] I Assembler have been reviewed. Reviewed/Co-Signed by: Josue Browne Documentation Done by: Federico Cool PTA Addendum: 05/20/19 at 1402 by Josue Browne PT Amended: Links added.
--- NOTE | 2019-05-20 14:01 | NUR ---
PHYSICAL THERAPY CO-SIGN The Physical Therapy Progress Notes documented by Party Demonstrator have been reviewed. Reviewed/Co-Signed by: Josue Browne Documentation Done by: Noah Cool PTA Addendum: 05/20/19 at 1402 by Josue Browne PT Amended: Links added.
--- NOTE | 2019-05-20 14:01 | NUR ---
PHYSICAL THERAPY CO-SIGN The Physical Therapy Progress Notes documented by Network Support Manager have been reviewed. Reviewed/Co-Signed by: Joseu Browne Documentation Done by: Noah Cool PTA Addendum: 05/20/19 at 1402 by Josue Browne PT Amended: Links added.
--- NOTE | 2019-05-20 16:08 | NUR ---
Medication Patients scheduled medication given as ordered. Patient is awake and alert, sitting in bed no signs of any distress, breathing is equal and non labored. Patient has all safety precautions in place. will continue to monitor. Family is at bed side. Educated glassware maker demonstrator light for assistance. Patient is still refusing to use IS at this time. Patient is close to nurses station.
[2019-05-20 17:01] VITALS: BP_SYST 122
--- NOTE | 2019-05-20 17:39 | NUR ---
Medication Patients scheduled medication given per order. Patient and family refusing accu check. Patient tolerated medication well. Patient is eating dinner. Patient has family at bed side. Patient and family educated to use call light for assistance. Call light is with patient. patient is close to nurses station. will continue to monitor.
[2019-05-20] MEDS ORDERED: QUEtiapine FUMARATE 25 MG TABLET PO SCH (18:00)
--- NOTE | 2019-05-20 18:22 | NUR ---
rn closing note patient is laying in bed appears to be resting breathing is equal and non labored. Patient has family at bed side. Patient shows no signs of any distress. patient has all safety precautions in place. Patient is close to nurses station. Patient has no other needs at this time. Addendum: 05/20/19 at 1844 by Macrina Brown RN Pain medication Patient medicated as ordered, as requested. no other needs at this time.
--- NOTE | 2019-05-20 19:15 | NUR ---
CHANGE OF SHIFT; pt. sleeping when received, was just medicated with Morphine for pain, S/P left ORIF. pt. son at bedside. IV tko on rt. upper arm with midline catheter, opens eyes when name called, disoriented. for further care, will reassess later.
--- NOTE | 2019-05-20 19:45 | NUR ---
NOTES: Dr. Holliday here, seen pt. and talking to pt. son, updated on pt. status, no other orders, pt. is already getting Morphine, benadryl and seroquel.
[2019-05-20 20:00] VITALS: BP_SYST 127
--- NOTE | 2019-05-20 20:30 | NUR ---
NOTES: pt. was transferred via bed to room 127 A for privacy, charge nurse Emigdio told the caregiver.
[2019-05-20] MEDS: DILTIAZEM HCL 60 MG TABLET PO SCH (20:47)
--- NOTE | 2019-05-20 21:00 | NUR ---
NOTES: pt. repositioned and hs /nanette care done. IV on rt. upper arm with midline catheter, wrapped with gauze kerlix to secure site, another IV lock on left wrist are, ecchymosis on both hands miguel ángel. left side. able to take medications, crushed with apple sauce. small dressing on left hip, appears swollen. pillow in between legs. pt. gets agitated on stimulation, disoriented. bed alarm on, safety measures in place. call light at bedside. Addendum: 05/20/19 at 2243 by Chen Tsang RN pt. son request not to check her blood sugar, does not want her to be poke , saying she is not diabetic.
--- NOTE | 2019-05-20 21:30 | NUR ---
NOTES: room does not have tv working per caregiver, charge nurse Emigdio aware, will transfer pt. to room 129 A via bed in stable condition. pt. son was aware that pt. might be transfer.
--- NOTE | 2019-05-20 23:40 | NUR ---
NOTES: pt. restless, medicated for pain on left hip post op, repositioned. keep body aligned. IV antibiotic infused via mid line catheter. romo cath to osd with yellow urine output.
[2019-05-21 00:45] VITALS: BP_SYST 100
--- NOTE | 2019-05-21 02:00 | NUR ---
NOTES: pt. checked, sleeping and caregiver also at bedside. condition observed. cardiac pattern on sinus rhythm.
--- NOTE | 2019-05-21 03:00 | NUR ---
NOTES: made rounds, pt. still asleep. continue to monitor. bed alarm on.
[2019-05-21] MEDS: MORPHINE 2 MG/ML INJ. SYRINGE IVP PRN ×3 (04:18→16:35)
--- NOTE | 2019-05-21 04:20 | NUR ---
NOTES: pt. woke up, caregiver called and pt. c/o of pain on rt. shoulder and left hip, medicated with Morphine as ordered. Addendum: 05/21/19 at 0431 by Chen Tsang RN repositioned, favors herself on her rt. side.
--- NOTE | 2019-05-21 06:00 | NUR ---
NOTES: been awake, drinking rosenda water ,ensure and juice in between throughout the night per caregiver. IV antibiotic due infused, site patent.repositioned on her back, fairly elevated.
[2019-05-21] MEDS: LEVOTHYROXINE SODIUM 0.025 MG TABLET PO SCH (06:20)
[2019-05-21] MEDS: PIPERACILLIN/TAZO 3.375/DEX-IS 50 ML IV SCH ×2 (06:20→12:28)
--- NOTE | 2019-05-21 06:40 | NUR ---
CLOSING NOTES; remains awake but calm, IV site patent with midline catheter. not in pain at this time. for further care and assistance , still disoriented. safet measures in place. on room air, still with occ. bouts of non productive cough. caregiver at bedside.call light at bedside.
[2019-05-21] MEDS: IPRATROPIUM/ALBUTEROL SULFATE 3 ML AMPUL.NEB (DUONEB) INH SCH ×3 (07:45→15:27)
[2019-05-21 08:00] VITALS: BP_SYST 129
--- NOTE | 2019-05-21 08:00 | NUR ---
AM NOTES Receive patient from shift boss nurse. Patient alert to name, confused at times. SCD's in place. Smith catheter in place and draining well. Midline in the right upper arm, patency noted. Dressing appears clean and intact. Dressing the left hip with old drainage dry and intact. Pain is controlled. Denies discomfort. Encouraged use of IS and deep breathing exercise. Safety precaution in place. Call light within reach.
[2019-05-21] MEDS: NEOMY SULF/BACITRA/POLYMYXIN B 3.5 GM OPHT. OINT. OP SCH (09:00)
[2019-05-21] MEDS: CHOLECALCIFEROL (VITAMIN D3) 2,000 UNIT TABLET PO SCH (09:22)
[2019-05-21] MEDS: DOCUSATE SODIUM 100 MG CAPSULE PO SCH (09:22)
[2019-05-21] MEDS: LACTOBACILLUS RHAMNOSUS GG 1 CAP CAPSULE PO SCH (09:22)
[2019-05-21] MEDS: MULTIVITS,CA,MINERALS/IRON/FA 1 TABLET PO SCH (09:22)
[2019-05-21] MEDS: MEGESTROL ACETATE 400 MG/10 ML UDC PO SCH (09:22)
[2019-05-21] MEDS: ENOXAPARIN SODIUM 40 MG/0.4 ML SYRINGE SUBCUT SCH (09:23)
[2019-05-21] MEDS: DILTIAZEM HCL 60 MG TABLET PO SCH (09:25)
--- NOTE | 2019-05-21 09:30 | NUR ---
NOTES All due meds are given. Patient tolerated well. Family at the bedside. Complaints pain the the right shoulder. Reposition and ice pack given. Will continue to monitor patient.
--- NOTE | 2019-05-21 11:09 | NUR ---
DC PLANNING: CM SPOKE WITH PATIENT'S SON (JULIET) AND DISCUSSED DC PLAN. PATIENT'S SON STATED HE WANTED PATIENT TO GO TO REHAB BEFORE GOING HOME. PATIENT'S SON WAS AGREEABLE TO SNF THAT IS CONTRACTED WITH INSURANCE ([employer] WHICH IS [facility]. CM PROVIDED PATIENT'S SON BROCHURE AND HE WAS AGREEABLE TO THE FACILITY AND DC TODAY. CM/DCP TO FOLLOW UP WITH ROOM NUMBER AT [facility].
--- NOTE | 2019-05-21 12:51 | NUR ---
RN ROUNDS Patient is asleep in bed. Son at the bed side. No signs of respiratory distress. No SOB. Needs met and attended. Will continue to monitor.
[2019-05-21 13:13] VITALS: BP_SYST 93
--- NOTE | 2019-05-21 15:04 | NUR ---
Discharge Planning: [facility]LE[facility] olson transportation to [facility] ([phone]) Rm 4A, transportation with [facility] ([phone]) between 4:30/5:30 [facility] Auth# [id number]. Packet taken to nurse station, nurse made aware.
--- NOTE | 2019-05-21 15:42 | NUR ---
Nutrition F/U RD reviewed pt's current EMR record including diet Hx, physician notes, nursing notes, pertinent labs/meds/procedures, care trends, and care activity. Current Diet Order: pureed, Ensure Enlive TID, Sony BID x4 days Subjective Info: Pt seen resting in bed w/ son at bedside feeding pt lunch. Son requested fish puree for pt -- RD notified [facility] staff to provide. Pt's appetite has seemed to improve per son report; c/w PO intake records. PPN support was D/C 05/19/19 per EMR records. Plans for pt to D/C to rehab/SNF per physician orders. 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 *ongoing Expected Outcomes/Goals Monitor appetite and PO intake w/ goal of pt meeting at least 75% of estimated nutritional needs, labs trending WNL, normal GI function, skin integrity/wt maintenance. Dietitian Recommendations * Recommend continuing pureed, Ensure Enlive TID, Sony BID (ONS and modular provide 1230 kcal/day, 65 gm protein/day) * Recommend encourage increase PO intakes Follow Up Moderate Risk: F/U in 3-5 days
--- NOTE | 2019-05-21 15:46 | NUR ---
Dietitian Recommendations * Recommend continuing pureed, Ensure Enlive TID, Sony BID (ONS and modular provide 1230 kcal/day, 65 gm protein/day) * Recommend encourage increase PO intakes LP, RD Please refer to Nutrition Assessment for details.
[2019-05-21 16:00] VITALS: BP_SYST 114
--- NOTE | 2019-05-21 16:44 | NUR ---
PHYSICAL THERAPY CO-SIGN The Physical Therapy Progress Notes documented by Side Panel Padder have been reviewed. Reviewed/Co-Signed by: Latoya Deluca PT Documentation Done by:HUGH ONEILL LINE UP EXAMINER POC REVIEWED W/ LINE UP EXAMINER; PROGRESS SUGEY. Addendum: 05/25/19 at 1644 by Latoya Deluca PT Amended: Links added.
--- NOTE | 2019-05-21 17:01 | NUR ---
Notes- D/C patient to [facility] via ambulance. Report given to LITA. Paatient was medicated with morphine before transfer. No acute distress noted. Discharge packet given to ambulance staff. Keep midline and romo catheter. no belongings noted. Discharge
== END 2019-05-21 17:10 | DRG 480 ==
LOC: SED 14:57 → STU 18:16
PROVIDERS: ADMIT Internal Medicine; ATTEND Internal Medicine
PROC: 0QS706Z Reposition Left Upper Femur with Intramedullary Internal Fixation Device, Open Approach (ICD-10-PCS; principal; 2019-05-16 11:00)
PROC: 05HY33Z Insertion of Infusion Device into Upper Vein, Percutaneous Approach (ICD-10-PCS; 2019-05-17)
PROC: B54MZZA Ultrasonography of Right Upper Extremity Veins, Guidance (ICD-10-PCS; 2019-05-17)
DX: S72.142A Displaced intertrochanteric fracture of left femur, initial encounter for closed fracture (principal); E43 Unspecified severe protein-calorie malnutrition; E87.1 Hypo-osmolality and hyponatremia; D62 Acute posthemorrhagic anemia; E87.6 Hypokalemia; F03.90 Unspecified dementia, unspecified severity, without behavioral disturbance, psychotic disturbance, mood disturbance, and anxiety; I10 Essential (primary) hypertension; I49.1 Atrial premature depolarization; K59.09 Other constipation; W18.39XA Other fall on same level, initial encounter; I70.90 Unspecified atherosclerosis; E03.9 Hypothyroidism, unspecified; J20.9 Acute bronchitis, unspecified; M65.222 Calcific tendinitis, left upper arm; I48.91 Unspecified atrial fibrillation; Z68.23 Body mass index [BMI] 23.0-23.9, adult; Z79.899 Other long term (current) drug therapy; Y93.89 Activity, other specified; Y92.090 Kitchen in other non-institutional residence as the place of occurrence of the external cause; Y99.8 Other external cause status
CPT/HCPCS: 36415; 70450-TC; 71045; 72128; 72131; 72192-TC; 73030; 73552; 76001; 80048; 80053; 80061; 81000-TC; 82306; 82962; 83735-TC; 84100-TC; 84439; 84443-TC; 85025; 85610-TC; 85730-TC; 86886; 86900; 86901; 87081; 93005; 93306; 94640; 94760; 96361; 96374; 96376; 97110-GP; 97112-GP; 97116-GP; 97163; 97530-GP; 99285; C1713; C1751; G0378; J0610; J0690; J1200; J1650; J1885; J2250; J2270; J2274; J2543; J2704; J3010; J3465; J3475; J3480; J3490; J7030; J7050; J7060; J7120; J7131; J7620; Q0163; Q9958